=== PATIENT | male | born 1945 | race Caucasian/White ===

== ENCOUNTER 2020-08-01 10:25 | Inpatient (IN) | payer OTHER, MEDICARE, MEDICAID, SELFPAY ==
[2020-08-01] VITALS (14 sets, daily range): BP systolic 135–185; BP diastolic 80–113; PULSE 62–97; RESP 15–20; TEMP 36.3–37.4; O2SAT 95–99; BMI 36.5
--- NOTE | 2020-08-01 10:30 | CT_ITS ---
WS: [id number] CT HEAD TECHNIQUE: Noncontrast CT of the head obtained from the skullbase to the vertex. CLINICAL INFORMATION: neuro deficits COMPARISON: None. DLP: [address] scans at [facility] use at least one of these dose optimization techniques: automat ed exposure control; mA and/or kV adjustment per patient size (includes targeted exams where dose is matched to clinical indication); or iterative reconstruction. FINDINGS: No evidence of intracranial hemorrhage or mass effect. Ventricular system and basal cisterns are hernandez nt. Mild small vessel changes with mild parenchymal volume loss. No extra-axial fluid collections. No evidence of mass or mass effect. Normal bal-white differentiation. Mastoid air cells are well aerated. Mild mucosal thickening paranasal sinuses with secretions in the maxillary sinuses and ethmoid air cells. CT/CT head wo con* [id number] IMPRESSION: 1. No evidence of intracranial hemorrhage or mass effect. 2. Mild small vessel changes. Mild parenchymal volume loss. 3. Mild sinusitis. 4. No acute intracranial findings. Notified Giovanni Tejada MD at 08/01/2020 10:43 AM.
--- NOTE | 2020-08-01 10:30 | ECG_ITS ---
[facility] [place] [facility] Date: 2020-08-01 Pat Name: Ap Chavez Department: Room: Gender: Male Ammonia Operator: : 1945 Requested By: Giovanni Tejada Order Number: [id number] Bandar MD: Dax Dill M.D. Measurements Intervals Altha Rate: 77 P: 63 MI: 287 QRS: -77 QRSD: 124 T: 32 QT: 427 QTc: 483 Interpretive Statements SINUS RHYTHM WITH 2nd DEGREE TYPE I AV BLOCK RIGHT BUNDLE BRANCH BLOCK [120+ ms QRS DURATION, UPRIGHT V1, 40+ ms S IN I/aVL/V4/V5/V6] LEFT ANTERIOR FASCICULAR BLOCK [QRS AXIS <= -45, QR IN I, RS IN II] No previous ECG available for comparison Electronically Signed On 08-02-2020 19:17:04 FIBERGLASS FABRICATOR by Dax Dill M.D. [id number]
--- NOTE | 2020-08-01 10:30 | CT_ITS ---
WS: [id number] CTA HEAD AND NECK TECHNIQUE: Contrast enhanced CTA of the head and neck with coronal and sagittal reformatted images an d maximum intensity projection (MIP) images. NASCET criteria utilized. CLINICAL INFORMATION: neuro deficits COMPARISON: None. DLP: 2592.[address] scans at [facility] use at least one of these dose optimization techniques: automat ed exposure control; mA and/or kV adjustment per patient size (includes targeted exams where dose is matched to clinical indication); or iterative reconstruction. FINDINGS: RIGHT: Right common carotid artery is patent. Tortuous right cervical ICA. Mild carotid bulb stenosis with calcified atheromatous disease. Less than 50% right ICA stenosis. ICA is tortuous and patent to the skull base. Moderate calcified atheromatous disease cavernous carotid segment without flow-limit ing stenosis. Mild narrowing supraclinoid ICA which remains patent. Hypoplastic right A1. Normal vasc ularity to the right M1 segment. LEFT: Left common carotid artery is patent. Mild eccentric calcified atheromatous disease left caroti d bulb extending into the ICA with stenosis measuring approximately 30%. Left ICA is patent to the sk ull base. Mild cavernous carotid calcification. Normal vascularity to the left MCA territory. INTRACRANIAL CTA: Codominant and patent vertebral arteries bilaterally. Basilar artery is patent. Normal vascularity to the right MCA territory. Persistent left BLOCK GREASER. Hypoplastic right A1 segment. Patent anterior communicating artery. Normal M1 segments. Normal vascul arity to the CHANDRIKA and MCA territories bilaterally. No intracranial flow limiting stenosis. Distal vess els appear patent. Lung apices are well aerated. Normal neck soft tissues. Mild paranasal sinusitis. CT/CT angio headneck* [id number] IMPRESSION: 1. Less than 50% cervical ICA stenosis bilaterally. No flow-limiting stenosis. 2. No flow-limiting intracranial stenosis. 3. Moderate calcified atheromatous disease right cavernous carotid artery with out flow-limiting stenosis. 4. Hypoplastic right A1 segment. 5. Normal vascularity to the CHANDRIKA and MCA territories bilaterally. 6. Codominant and patent vertebral arteries. Basilar artery is patent. 7. Persistent left BLOCK GREASER.
[2020-08-01] MEDS: iodixanol 320 mg/mL 100mL Btl IV (10:37)
--- NOTE | 2020-08-01 10:59 | W.ED.NEUROSD ---
HPI - Neuro Symptoms/Deficit General: Chief Complaint: Neuro Symptoms/Deficit Stated Complaint: neuro deficits Time Seen by Provider: 08/01/20 10:28 Source: patient and EMS History of Present Illness: HPI Narrative: Patient presents with right-sided deficits consistent with a stroke. Has right arm and leg weakness. Has right facial droop. Has slurred speech. Last known well time was 2 AM when he got up to go to the bathroom. He states he was normal at that time. When he awoke this morning he had symptoms. Associated symptoms: Deny chest pain or headache(s) Review of Systems General: Reports: 10 or more systems reviewed and unremarkable except in HPI and below Const: Denies: fever(s) Eyes: Denies: change in vision ENMT: Denies: throat pain Card: Denies: chest pain Resp: Denies: dyspnea GI: Denies: abdominal pain : Denies: flank pain Musc: Denies: neck pain Neuro: Reports: weakness in extremities, Slurred speech present and difficulty communicating thoughts; Denies: headache(s), numbness in extremities or sensory changes NIH stroke score NIHSS: Level Of Consciousness - 1a: 0 Level Of Consciousness Questions - 1b: Both Correct Level Of Consciousness Commands - 1c: Both Correct Best Gaze - 2: Normal Visual [place] - 3: No Visual Loss Facial Palsy - 4: Partial Paralysis Motor Arm Right - 5: Effort Against [place] Motor Arm Left - 5: No Drift Motor Leg Right - 6: Drift Motor Leg Left - 6: No Drift Limb Ataxia - 7: Present In One Limb Sensory - 8: Normal Best Language - 9: Mild/Moderate Aphasia Dysarthia - 10: Mild/Moderate Dysarthia Extinction And Inattention - 11: 0 Score: Total Score: 8 Physical Exam Const: COMMON NORMALS: no acute distress, average body habitus, patient oriented x3, no limitations, healthy appearing, alert and well nourished HENMT: COMMON NORMALS: normocephalic, atraumatic, hearing grossly normal bilaterally, external ears normal, EAC's normal, TM's normal bilaterally, Normal external nose present, Normal nasal mucous membranes and turbinates present, moist oral mucous membranes, oropharynx normal, dentition normal and gingiva normal HEAD & SCALP: normocephalic and atraumatic NOSE: Normal external nose present and Normal nasal mucous membranes and turbinates present EXTERNAL EAR: Yes external ears normal EXTERNAL AUDITORY CANAL: EAC's normal TYMPANIC MEMBRANE: TM's normal bilaterally Eye: COMMON NORMALS: Equal, round and reactive pupils present, EOMs intact bilaterally, conjunctivae normal, no scleral icterus, no papilledema, normal visual aldridge by confrontation and fundi normal bilaterally CONJUNCTIVA: Yes conjunctivae normal PUPIL: Yes Equal, round and reactive pupils present DIRECT OPHTHALMOSCOPY: Yes no papilledema and Yes fundi normal bilaterally Neck/C-Spine: COMMON NORMALS: full ROM, no lymphadenopathy, supple, no meningeal signs, Thyroid normal and No carotid bruits THYROID: Thyroid normal Resp: COMMON NORMALS: normal respiratory effort, No retractions, No use of accessory muscles, clear to auscultation bilaterally and percussion normal AUSCULTATION: clear to auscultation bilaterally PERCUSSION: percussion normal Neuro: COMMON NORMALS: patient oriented x3 SENSORIUM/ORIENTATION: Yes alert MENINGEAL SIGNS: Yes no meningeal signs CRANIAL NERVES: No CN normal except as noted (Right facial droop with slurred speech) SPEECH: abnormal speech SENSORY EXAM: No sensory level loss detected MOTOR EXAM: No 5/5 motor strength present throughout (Patient with significant decreased strength of the right upper and lower ex) Course Vital Signs: Vital signs: Vital Signs Temperature 98.6 F 08/01/20 10:25 Pulse Rate 70 08/01/20 11:02 Respiratory Rate 18 08/01/20 11:02 Blood Pressure 167/113 08/01/20 11:02 Pulse Oximetry 96 08/01/20 11:02 MDM - Neuro Symptoms/Deficit MDM Narrative: Medical decision making narrative: Patient symptoms are slightly improving while here in the emergency department. His right arm is now able to be picked up off the bed which was not able to do initially. His head CT and CT of the head and neck were negative. Patient would not be a TPA candidate as his last known well time was approximately 8 to 10 hours ago. There is no large vessel occlusion. Patient clinically with CVA. Will admit patient to hospitalist. Lab Data: Labs: Lab Results 08/01/20 08/01/20 08/01/20 Range/Units 10:55 10:55 10:55 WBC 5.2 (4.0-10.0) 10^3/ uL RBC 4.66 (4.1-5.3) 10^6/u L Hgb 14.9 (11.7-16.6) g/dL Hct 45.5 (42.0-52.0) % MCV 97.6 H (80-94) fL MCH 32.0 (28.0-34.0) pg MCHC 32.7 (30.0-36.0) g/dL RDW 13.1 (12.1-15.1) % Plt Count 208 (130-400) 10^3/c mm MPV 9.1 (7.4-10.4) fL Neut % (Auto) 39.0 % Lymph % (Auto) 46.8 % [place] % (Auto) 10.5 % Eos % (Auto) 3.1 % Baso % (Auto) 0.4 % Neut # (Auto) 2.01 (1.8-7.7) 10^3/u L Lymph # (Auto) 2.4 (0.8-4.8) 10^3/u L [place] # (Auto) 0.5 (0.2-0.9) 10^3/u L Eos # (Auto) 0.2 (0.0-0.8) 10^3/u L Baso # (Auto) 0.0 (0.0-0.1) 10^3/u L Nucleated RBC % (a uto) 0 % Nucleated RBCs # 0.0 /100WBC PT 13.20 (12.1-14.9) SECO NDS INR 0.97 (0.8-1.2) APTT 24.4 (23.9-36.7) SECO NDS Sodium 140 (136-145) mmol/L Potassium 4.3 (3.5-5.1) mmol/L Chloride 105 (98-107) mmol/L Carbon Dioxide 27 (22-29) mmol/L Anion Gap 12.3 (5-19) BUN 12 (8-23) mg/dL Creatinine 1.2 (0.7-1.2) mg/dL GFR Calculation Not Reportable Glucose 108 (65-115) mg/dL Calculated Osmolal ity 290 (285-295) mOsm/k g Calcium 8.4 L (8.5-10.5) mg/dL Total Bilirubin 0.5 (0.15-1.2) mg/dL AST 16 (0-40) U/L ALT 14 (0-41) U/L Alkaline Phosphata se 61 (40-130) IU/L Total Protein 6.4 L (6.6-8.7) g/dL Albumin 3.9 (3.5-5.2) g/dL Globulin 2.5 (1.3-4.6) g/dL Discharge Plan Discharge Patient Disposition: Admitted As Inpatient Clinical Impression: Cerebrovascular accident Condition: Stable Coding Level of Care Code ED Instructor Psychiatric Aide for Mary Jane Fwd Exam Detailed
[2020-08-01 11:09] LABS: Basophils % 0.4 %; Eosinophils # 0.2 10^3/uL (0.0-0.8); Eosinophils % 3.1 %; Hematocrit 45.5 % (42.0-52.0); Hemoglobin 14.9 g/dL (11.7-16.6); Lymphocytes # 2.4 10^3/uL (0.8-4.8); Lymphocytes % 46.8 %; Mean Corpuscular HGB Conc 32.7 g/dL (30.0-36.0); Mean Corpuscular Volume 97.6 fL (80-94); Mean Platelet Volume 9.1 fL (7.4-10.4); Monocytes # 0.5 10^3/uL (0.2-0.9); Monocytes % 10.5 %; Neutrophils # 2.01 10^3/uL (1.8-7.7); Nucleated Red Blood Cells % 0 %; Platelet Count 208 10^3/cmm (130-400); Red Blood Count 4.66 10^6/uL (4.1-5.3); Red Cell Distribution Width 13.1 % (12.1-15.1); White Blood Count 5.2 10^3/uL (4.0-10.0)
[2020-08-01 11:22] LABS: INR 0.97 (0.8-1.2)
[2020-08-01 11:23] LABS: Partial Thromboplastin Time 24.4 SECONDS (23.9-36.7)
[2020-08-01 11:27] LABS: Alanine Aminotransferase 14 U/L (0-41); Albumin Level 3.9 g/dL (3.5-5.2); Alkaline Phosphatase 61 IU/L (40-130); Anion Gap 12.3 (5-19); Aspartate Amino Transferase 16 U/L (0-40); Blood Urea Nitrogen 12 mg/dL (8-23); Calcium 8.4 mg/dL (8.5-10.5); Carbon Dioxide 27 mmol/L (22-29); Chloride 105 mmol/L (98-107); Globulin 2.5 g/dL (1.3-4.6); Glucose 108 mg/dL (65-115); Osmolality Calculated 290 mOsm/kg (285-295); Potassium 4.3 mmol/L (3.5-5.1); Sodium 140 mmol/L (136-145); Total Bilirubin 0.5 mg/dL (0.15-1.2); Total Protein 6.4 g/dL (6.6-8.7)
[2020-08-01 12:35] LABS: Amphetamines Screen Urine Negative (Negative); Barbiturates Screen Urine Negative (Negative); Benzodiazepines Screen Urine Negative (Negative); Cocaine Screen Urine Negative (Negative); Opiate Screen Urine Positive (Negative); PCP Screen Urine Negative (Negative); THC Screen Urine Negative (Negative)
[2020-08-01 12:44] LABS: Add Urine Microscopic? YES; Bilirubin Urine Neg (Negative); Blood Urine 3+ (Negative); Glucose Urine UA Norm (Normal); Ketones Urine Negative (Negative); Leukocyte Esterase Urine Negative (Negative); Nitrate Urine Negative (Negative); Protein Urine Neg (Negative); Specific Gravity, Urine 1.025 (1.005-1.030); Urine Appearance Clear (CLEAR); Urine Color Yellow (Yellow); Urobilinogen Urine Norm (Negative); pH Urine 5 (5-7)
--- NOTE | 2020-08-01 12:44 | P.HP_ITS ---
Providers/Chief Complaint Admitting Physician: Alex Pena MD Chief Complaint: neuro deficits History of Present Illness Ap Chavez is a 75 year old male with a past medical history of atrial flutter status post ablation procedure, not on anticoagulation, has a history of right lower extremity DVTs, has finished Eliquis therapy, has a history of chronic back pain, with spinal stimulator, is on Suboxone therapy, who presents to [facility] due to concerns for a stroke. Patient's last known well was 10 PM the night before he met his went to bed. thinks that he did wake up in the middle of the night sometime around maybe 2 AM to use the bathroom. Currently patient's is a primary historian, patient has productive aphasia, he has slurring of his speech, his speech is difficult to make out, but he can nod to questions, no significant evidence of receptive aphasia. Patient's says that this morning at around 10 AM, she woke up, she use the bathroom, she found her on the floor, he was on his side, he had slurring of his words, but when she could make out his that he was telling her that he had weakness on the right side, he could not move his right arm, or move his right leg, so she called EMS. On arrival to the emergency room, patient's NIH stroke scale was 7, head CT was negative for intracranial bleed, patient was out of TPA window, CT of the head and neck did not show any lesion that was amenable to endovascular procedure, hospitalist team was called for admission. Currently patient's strength in the right upper and right lower extremities have improved compared to when he arrived in the emergency room. He is in normal sinus rhythm, blood pressure 185/105, saturating in the high 90s on room air, pulse is 62. Review of Systems General: Reports: ROS unobtainable due to medical condition Eyes: Denies: change in vision Card: Denies: chest pain Resp: Denies: dyspnea Neuro: Reports: weakness in extremities, lack of coordination and Slurred speech present; Denies: headache(s) or numbness in extremities PFSH Acute PFSH: Medical History (Updated 08/01/20 @ 12:49 by Alex Pena MD) History of atrial flutter History of deep venous thrombosis (DVT) of distal vein of right lower extremity Surgical History (Updated 08/01/20 @ 12:49 by Alex Pena MD) History of radiofrequency ablation procedure for cardiac arrhythmia Family History (Updated 08/01/20 @ 12:49 by Alex Pena MD) Other CAD (coronary artery disease) Diabetes Stroke Social History (Updated 08/01/20 @ 12:50 by Alex Pena MD) Smoking and tobacco status: never smoked Alcohol intake: current Alcohol intake frequency: 0-2 Drinks per Day Substance/Drug Use: never Vitals/I&O/Wt Last Vital Signs Temp 98.6 F 08/01/20 10:25 Pulse 62 08/01/20 12:02 Resp 15 08/01/20 12:02 BP 185/105 08/01/20 12:02 Pulse Ox 97 08/01/20 12:02 Weight last 48 hrs Weight 108.862 kg Physical Exam Const: COMMON NORMALS: no acute distress and patient oriented x3 GENERAL APPEARANCE: cooperative and comfortable HENMT: COMMON NORMALS: normocephalic HEAD & SCALP: normocephalic Eye: COMMON NORMALS: Equal, round and reactive pupils present and EOMs intact bilaterally GENERAL EYE: appearance normal, both eyes and all related structures PUPIL: Yes Equal, round and reactive pupils present Neck/C-Spine: COMMON NORMALS: full ROM, no lymphadenopathy, no JVD and Thyroid normal THYROID: Thyroid normal Lymph: LYMPHATIC: no lymphadenopathy noted Resp: COMMON NORMALS: normal respiratory effort, No retractions, No use of accessory muscles and clear to auscultation bilaterally AUSCULTATION: clear to auscultation bilaterally Cardio: COMMON NORMALS: no JVD, regular rate, regular rhythm, S1 normal heart sound present, S2 normal heart sound present, No gallops present (Cardio), No clicks present (Cardio) and No murmurs present (Cardio) RATE: regular rate RHYTHM: regular rhythm HEART SOUNDS: S1 normal heart sound present and S2 normal heart sound present GI: COMMON NORMALS: Normal to inspection, nondistended, normoactive bowel sounds present, Soft to palpation, non-tender and No hepatosplenomegaly present PALPATION: Yes Soft to palpation and Yes No hepatosplenomegaly present Extremity: COMMON NORMALS: normal to inspection, full ROM and no pedal edema Neuro: OTHER: Patient follows commands Has mild right facial droop, had nasolabial fold, right lower face Right upper extremity strength 2 out of 5 Right lower extremity strength 2 out of 5 Positive cerebellar signs, [id number] positive Has dysarthria, productive aphasia, slurring of his words No visual deficits Psych: COMMON NORMALS: mental status grossly normal and cooperative Urinary Catheter Management^: Curiel: Cath Placed During This Visit: yes Urinary Catheter Date of Insertion: 08/01/20 Urinary Catheter Time of Insertion: 12:03 Data : 08/01/20 10:55 08/01/20 10:55 A&P Assessment and plan (1) Cerebrovascular accident: Concerns for left-sided CVA, with right-sided deficits, right upper and right lower extremity weakness, right facial droop,'s productive aphasia, slurring of words -CT head: 1. No evidence of intracranial hemorrhage or mass effect. 2. Mild small vessel changes. Mild parenchymal volume loss. 3. Mild sinusitis. 4. No acute intracranial findings. -CTA head and neck: 1. Less than 50% cervical ICA stenosis bilaterally. No flow-limiting stenosis. 2. No flow-limiting intracranial stenosis. 3. Moderate calcified atheromatous disease right cavernous carotid artery without flow-limiting stenosis. 4. Hypoplastic right A1 segment. 5. Normal vascularity to the CHANDRIKA and MCA territories bilaterally. 6. Codominant and patent vertebral arteries. Basilar artery is patent. 7. Persistent left DIRECTOR OF LABOR RELATIONS -EKG normal sinus rhythm Plan: -Admit to general medical floors -Rectal aspirin -Swallow eval -Aspirin statin -Allow for permissive hypertension -Treat if systolic blood pressure greater than 220 or diastolic greater than 120 -Telemetry monitoring for A. fib events -Cardiac echocardiogram -PT OT -Continue IV fluids -TSH, mag -Neurochecks, aspiration precautions, NIH scores -Full code -Lovenox for DVT prophylaxis Status: Acute Attestations Medical Necessity Statement*: Patient requires hospitalization, inpatient, greater than 2 midnights, for cerebrovascular accidents, residual right-sided deficits, slurring of his words Coding Level of Care Code Acute Administrative Support Assistant for Mary Jane Sanders Diagnoses Cerebrovascular accident I63.9
[2020-08-01 13:02] LABS: Add Urine Culture? Yes; Bacteria Urine TRACE /hpf; RBC Urine 80-100 /hpf (0-2); Squamous Epithelial Cell Urine 0-4 /hpf (0-5)
--- NOTE | 2020-08-01 13:57 | USCV_ITS ---
Ap Chavez Age: 75 Gender: M : 1945 Exam Date: 08/01/2020 15:07 Ordering Phys: Alex Pena MD Technologist: Gretchen Alarcon [place] [facility] [place]ication: SOB BP: 160 / 87 HR: 71 Rhythm: Sinus Technical Quality: Suboptimal MEASUREMENTS (Male / Female) Normal Values 2D ECHO LV Diastolic Diameter PLAX 4.5 cm 4.2 - 5.9 / 3.9 - 5.3 cm LV Systolic Diameter PLAX 3.0 cm LV Chamber Size 4.0 cm IVS Diastolic Thickness 1.2 cm 0.6 - 1.0 / 0.6 - 0.9 cm IVS Systolic Thickness 1.9 cm LVPW Diastolic Thickness 1.6 cm 0.6 - 1.0 / 0.6 - 0.9 cm LVPW Systolic Thickness 2.3 cm RV Chamber Size 3.1 cm LVOT Diameter 2.0 cm LV Ejection Fraction 2D Teich 62.5 % LV Ejection Fraction MOD 2C 54.9 % LV Ejection Fraction 2C AL 55.5 % LA Diameter 2.6 cm LA Width 4.0 cm LA Height 4.4 cm Aorta at Sinotubular Diameter 2.9 cm M-MODE LV Diastolic Diameter MM 4.9 cm 4.2 - 5.9 / 3.9 - 5.3 cm LV Systolic Diameter MM 3.7 cm LV Ejection Fraction MM Teich 49.2 % IVS Diastolic Thickness MM 1.0 cm 0.6 - 1.0 / 0.6 - 0.9 cm IVS Systolic Thickness MM 1.3 cm LVPW Diastolic Thickness MM 0.9 cm 0.6 - 1.0 / 0.6 - 0.9 cm LVPW Systolic Thickness MM 1.1 cm Aortic Annulus Diameter 3.6 cm LA Ao Ratio MM 0.8 MV E Point Septal Separation 0.9 cm DOPPLER AV Peak Velocity 108.0 cm/s LVOT Peak Velocity 114.0 cm/s AV Area Cont Eq vti 3.3 cm squared AV Area Cont Eq pk 3.4 cm squared MV Area PHT 3.4 cm squared Mitral E to A Ratio 0.7 MV E' Velocity 30.5 cm/s Mitral E to MV E' Ratio 6.9 Mitral E to LV E' Lateral Ratio 7.8 Mitral E to LV E' Septal Ratio 6.2 TR Peak Velocity 95.3 cm/s TR Peak Gradient 3.6 mmHg TV Peak E Velocity 52.0 cm/s PV Peak Velocity 103.0 cm/s RV Acceleration Time 0.1 s RV Ejection Time 0.3 s RV AcT/ET 0.4 FINDINGS Left Ventricle Possibly normal LV size ejection fraction. No gross wall motion normalities were noted.Grade I/IV diastolic dysfunction (abnormal relaxation filling pattern), normal to mildly elevated filling pressures. Right Ventricle Possibly of normal size ejection fraction Right Atrium Could not be visualized well Left Atrium Possibly of normal size. Mitral Valve Thickened mitral valve. Mild mitral annular calcification. Aortic Valve No gross abnormalities noted Tricuspid Valve Not visualized well Pulmonic Valve Not visualized well Pericardium Normal pericardium without effusion. Aorta Normal ascending aorta dimension. CONCLUSIONS Possibly normal LV size ejection fraction. No gross wall motion normalities were noted. Grade I/IV diastolic dysfunction (abnormal relaxation filling pattern), normal to mildly elevated filling pressures. Thickened mitral valve. Mild mitral annular calcification. There is no pericardial effusion. Technically difficult study because of the poor ultrasonic window. Dr Dax Dill MD [facility] (Electronically Signed) Final Date: 02 August 2020 11:41 S
--- NOTE | 2020-08-01 13:57 | USCV_ITS ---
Ap Chavez Age: 75 Gender: M : 1945 Exam Date: 08/01/2020 15:18 Ordering Phys: Alex Pena MD Technologist: Gretchen Alarcon [place] [facility] [place]: DVT HISTORY: DVT. PROCEDURES: Venous duplex imaging was performed in bilateral lower extremities. The following venous structures were evaluated: common femoral vein, profunda vein, proximal portion of the greater saphenous vein, superficial femoral vein, and the popliteal vein. In addition, the posterior tibial and peroneal trunk were evaluated. Serial compression, augmentation maneuvers, and spectral Doppler flow evaluation were performed. FINDINGS: Tech difficult exam unable to see vessels clearly. DVT was noted in the right CFV extending into proximal FV. The right common femoral vein in the proximal segment of the superficial femoral vein were found to be partially compressible. Echodensities were noted in the lumen of these veins thick venous varela. CONCLUSIONS 1. Features suggestive of deep vein thrombosis involving the right common femoral and proximal segment of the superficial femoral vein. Features may suggest old thrombosis with recanalization. But because of the technical difficulties, the rest of the venous segments could not be visualized well. 2. No DVT was noted on the left side 3. Technically difficult study. Dr Dax Dill MD [facility] (Electronically Signed) Final Date: 02 August 2020 11:21 S
--- NOTE | 2020-08-01 15:35 | US_ITS ---
WS: [id number] ULTRASOUND RENAL TECHNIQUE: Ultrasound examination of both kidneys. CLINICAL INFORMATION: hematuria COMPARISON: None. FINDINGS: Technically difficult examination due to body habitus. RIGHT: Right kidney is normal in size and appearance. Echogenicity: Normal. Cortical thickness: 1.4 cm; Normal. Hydronephrosis: None. Perinephric fluid: None. Right kidney measures: 10.7 cm x 3.8 cm x 5.3 cm. LEFT: Left kidney is normal in size and appearance. Echogenicity: Normal. Cortical thickness: 1.3 cm; Normal. Hydronephrosis: None. Perinephric fluid: None. Left kidney measures: 10.7 cm x 4.1 cm x 5.6 cm. Normal visualized aorta. Curiel catheter. US/US renal BI* [id number] IMPRESSION: Technically difficult examination. 1. No hydronephrosis in either kidney. 2. Curiel catheter. 3. Nonobstructing right renal calculus measuring 3 mm
[2020-08-01] MEDS: clopidogrel 75 mg Tablet PO (17:18)
[2020-08-01] MEDS: aspirin 81 mg EC Tablet PO (17:18)
[2020-08-01] MEDS: enoxaparin 40 mg/0.4 mL Syringe SUBCUT (17:19)
[2020-08-01] MEDS: sodium chloride 0.9% 1,000 ML 100 ML IV (17:20)
[2020-08-01] MEDS: ondansetron 2 mg/ML SDV 2 mL 4 MG IVP (22:20)
[2020-08-01] MEDS: famotidine 20 mg/2 mL INJ IVP (22:21)
[2020-08-02] VITALS (11 sets, daily range): BP systolic 128–169; BP diastolic 71–98; PULSE 67–90; RESP 16–20; TEMP 36.7–37.2; O2SAT 93–94
[2020-08-02 04:50] LABS: Basophils % 0.3 %; Eosinophils % 0.5 %; Hemoglobin 14.6 g/dL (11.7-16.6); Lymphocytes # 1.4 10^3/uL (0.8-4.8); Lymphocytes % 18.4 %; Mean Corpuscular HGB Conc 33.2 g/dL (30.0-36.0); Mean Corpuscular Hemoglobin 32.4 pg (28.0-34.0); Mean Corpuscular Volume 97.8 fL (80-94); Mean Platelet Volume 9.3 fL (7.4-10.4); Monocytes # 0.7 10^3/uL (0.2-0.9); Monocytes % 9.2 %; Neutrophils % 71.2 %; Nucleated Red Blood Cells % 0 %; Platelet Count 213 10^3/cmm (130-400); White Blood Count 7.6 10^3/uL (4.0-10.0)
[2020-08-02 05:27] LABS: Alanine Aminotransferase 12 U/L (0-41); Alkaline Phosphatase 65 IU/L (40-130); Anion Gap 13.2 (5-19); Aspartate Amino Transferase 13 U/L (0-40); Blood Urea Nitrogen 10 mg/dL (8-23); Carbon Dioxide 26 mmol/L (22-29); Chloride 104 mmol/L (98-107); Cholesterol 209 mg/dL (0-200); Globulin 2.5 g/dL (1.3-4.6); Glucose 113 mg/dL (65-115); HDL Cholesterol 41 mg/dL (60-100); Magnesium 1.9 mg/dL (1.7-2.3); NT Pro B Type Natriuretic Pept 302 pg/mL (0-125); Osmolality Calculated 288 mOsm/kg (285-295); Phosphorus 2.3 mg/dL (2.5-4.5); Potassium 4.2 mmol/L (3.5-5.1); Sodium 139 mmol/L (136-145); Thyroid Stimulating Hormone 0.44 uIU/mL (0.27-4.20); Total Bilirubin 0.6 mg/dL (0.15-1.2); Total Protein 6.5 g/dL (6.6-8.7); Triglycerides 427 mg/dL (0-150)
[2020-08-02] MEDS: sodium chloride 0.9% 1,000 ML 100 ML IV ×2 (05:37→20:22)
[2020-08-02 06:17] LABS: Estmated Average Glucose 111; Hemoglobin A1C 5.5 % (4.0-6.0)
[2020-08-02 06:32] LABS: LDL Cholesterol Direct 121 mg/dL (0-100)
--- NOTE | 2020-08-02 10:49 | CTR_ITS ---
PROCEDURE INFORMATION: Exam: CT Head Without Contrast Exam date and time: 08/02/2020 11:05 AM Age: 75 years old Clinical indication: Altered mental status/memory loss; Confusion or disorientation; Additional info: [place] course of CVA TECHNIQUE: Imaging protocol: Computed tomography of the head without contrast. Radiation optimization: All CT scans at this facility use at least one of these dose optimization techniques: automated exposure control; mA and/or kV adjustment per patient size (includes targeted exams where dose is matched to clinical indication); or iterative reconstruction. COMPARISON: CT head wo con* [id number] 08/01/2020 10:39 AM RADIATION DOSE METRICS: Total DLP (mGy-cm): 1816.9 FINDINGS: Brain: There is a 3 cm region of low density involving the anterior portion of the left basal ganglia and left internal capsule consistent with a recent nonhemorrhagic infarct. This has occurred since the previous CT scan from 08/01/2020. There is generalized prominence of the ventricles and sulci due to chronic atrophy. There is no mass effect or midline shift. Cerebral ventricles: There is mild prominence of the ventricles due to chronic atrophy.. Bones/joints: Unremarkable. No acute fracture. Paranasal sinuses: There is mucosal thickening in the paranasal sinuses with fluid in the maxillary sinuses. Mastoid air cells: Visualized mastoid air cells are well aerated. Soft tissues: Unremarkable. CT/CT head wo con* [id number] IMPRESSION: 1. Nonhemorrhagic acute infarct involving the anterior portion of the left basal ganglia and internal capsule. 2. Chronic atrophy. 3. Paranasal sinusitis. Radiation Dose CTDIVOL = (mGy): DLP = 1816.9 (mGy-cm)
[2020-08-02 10:56] LABS: Glucose Point of Care 124 mg/dL (70-110)
[2020-08-02] MEDS: aspirin 81 mg EC Tablet PO (11:03)
--- NOTE | 2020-08-02 11:03 | PC.CHAP ---
Pastoral Care Encounter/Spiritual Assessment Type of Contact [] Declined brick and tile making machine operator visit [] Patient/Family/Request visit [] Outpatient visit [] Follow-up visit [] Physician referral [] Code/Alert [XX] Routine visit [] Staff referral [] Actively dying [] Patient sleeping [] Family support [] [] Out of room [] Palliative care [] [] Receiving care in room [] Pre-surgical visit [] Trauma [] Long length of stay [] ICU visit [] Other: Relational/Emotional Strength [] Patient feels connected with others/family/visitors/staff [] Distress [] Loneliness/isolation [] Abandonment Spirituality of Patient [] Person of Nohemi [] Attends Caodaism of their Nohemi [] Believes in Prayer [] Reads Bible or Alevism materials [] There are Spiritual issues to be addressed Graphic Manager Interventions [] Prayer [] Active listening [XX] Non-anxious presence [] Spiritual/emotional support [] Crisis/trauma care [] Spiritual counseling [] Bereavement support [] Provided bereavement packet [] Provided Bible/devotional materials [] Provided toy/stuffed animal, coloring book to patient or family member [] Provided Communion [] Anointing/[place] [] Salvation [] Completed spiritual assessment [] Other: Impact on Illness or Injury [] Angry [] Fearful [] Anxious [] Often cries [] Exhaustion [] Unable to work [] Unable to attend mandaen [] Unable to walk/stand [] Unable to read [] Unable to drive [] Unable to eat/drink [] Unable to sleep [] Unable to be with family [] Patient intubated [] Other: Summary: Pt did not feel well enough for a visit but stated that he appreciated me stopping by. Will request brick and tile making machine operator follow-up. Time spent with patient: 1 min
[2020-08-02] MEDS: famotidine 20 mg/2 mL INJ IVP ×2 (11:04→20:33)
[2020-08-02] MEDS: clopidogrel 75 mg Tablet PO (11:04)
[2020-08-02] MEDS: buprenorphine-naloxone 4-1 mg Film 2 EACH SUBLINGUAL (11:14)
--- NOTE | 2020-08-02 13:17 | P.PN_ITS ---
Subjective Subjective: Interval history: Overnight patient's NIH stroke scales were as high as 17, it seems like he has had a stuttering course in terms of his stroke, this morning, I do not see any evidence of receptive aphasia capably understands what I am saying, does have slurring of his speech, was seen by speech therapy his diet was changed to dysphagia level 2, his right upper extremity weakness is more pronounced this morning compared to yesterday, his right lower extremity weakness is a bit better, compared to yesterday, does have right facial droop, he follows all commands, afebrile overnight, no seizure episodes, blood pressures 156/90, saturating high 90s on room air Vitals/I&O/Wt Last Vital Signs Temp 98.8 F 08/02/20 12:00 Pulse 83 08/02/20 12:00 Resp 18 08/02/20 12:00 BP 156/90 08/02/20 12:00 Pulse Ox 94 08/02/20 12:00 08/01/20 08/02/20 08/02/20 22:59 06:59 14:59 Intake Total 240 / 240 1100 / 1340 220 / 220 Output Total 1200 / 1200 450 / 1650 Balance -960 / -960 650 / -310 220 / 220 Weight last 48 hrs Weight 108.862 kg Physical Exam Const: COMMON NORMALS: no acute distress and patient oriented x3 GENERAL APPEARANCE: cooperative and comfortable HENMT: COMMON NORMALS: normocephalic HEAD & SCALP: normocephalic Eye: COMMON NORMALS: Equal, round and reactive pupils present and EOMs intact bilaterally GENERAL EYE: appearance normal, both eyes and all related structures PUPIL: Yes Equal, round and reactive pupils present Neck/C-Spine: COMMON NORMALS: full ROM, no lymphadenopathy, no JVD and Thyroid normal THYROID: Thyroid normal Lymph: LYMPHATIC: no lymphadenopathy noted Resp: COMMON NORMALS: normal respiratory effort, No retractions, No use of accessory muscles and clear to auscultation bilaterally AUSCULTATION: clear to auscultation bilaterally Cardio: COMMON NORMALS: no JVD, regular rate, regular rhythm, S1 normal heart sound present, S2 normal heart sound present, No gallops present (Cardio), No clicks present (Cardio) and No murmurs present (Cardio) RATE: regular rate RHYTHM: regular rhythm HEART SOUNDS: S1 normal heart sound present and S2 normal heart sound present GI: COMMON NORMALS: Normal to inspection, nondistended, normoactive bowel sounds present, Soft to palpation, non-tender and No hepatosplenomegaly present PALPATION: Yes Soft to palpation and Yes No hepatosplenomegaly present Extremity: COMMON NORMALS: normal to inspection, full ROM and no pedal edema Neuro: COMMON NORMALS: patient oriented x3 OTHER: Patient follows commands Has mild right facial droop, had nasolabial fold, right lower face Right upper extremity strength 1 out of 5 Right shoulder strength 2 out of 5 compared to 5 out of 5 Right lower extremity strength 3 out of 5 Positive cerebellar signs, [id number] positive Has dysarthria, productive aphasia, slurring of his words slightly worse compared to yesterday No visual deficits Psych: COMMON NORMALS: mental status grossly normal and cooperative Urinary Catheter Management^: Curiel: Cath Placed During This Visit: yes Reason for Continuing Indwelling Catheter: Required Immobilization for Trauma or Surgery or Anesthesia Urinary Catheter Date of Insertion: 08/01/20 Urinary Catheter Time of Insertion: 12:03 Data : 08/02/20 04:30 08/02/20 04:30 A&P Assessment and plan (1) Cerebrovascular accident: left-sided CVA, with right-sided deficits, right upper and right lower extremity weakness, right facial droop,'s productive aphasia, slurring of words -CT head: 1. No evidence of intracranial hemorrhage or mass effect. 2. Mild small vessel changes. Mild parenchymal volume loss. 3. Mild sinusitis. 4. No acute intracranial findings. -CTA head and neck: 1. Less than 50% cervical ICA stenosis bilaterally. No flow-limiting stenosis. 2. No flow-limiting intracranial stenosis. 3. Moderate calcified atheromatous disease right cavernous carotid artery without flow-limiting stenosis. 4. Hypoplastic right A1 segment. 5. Normal vascularity to the CH[place]RIKA and MCA territories bilaterally. 6. Codominant and patent vertebral arteries. Basilar artery is patent. 7. 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 fib events -PT OT -Continue IV fluids -TSH, mag within normal limits -Cannot do an MRI as he patient has a spinal stimulator -Neurochecks, aspiration precautions, NIH scores -Monitor for signs for cerebral edema -Full code -Lovenox for DVT prophylaxis Status: Acute (2) Right leg DVT: -Patient has a history of right lower extremity DVT, on anticoagulation, now off of it, timeframe unknown, he is not exactly sure how long he was on anticoagulation for -Right lower extremity ultrasound showed: Features suggestive of deep vein thrombosis involving the right common femoral and proximal segment of the superficial femoral vein. Features may suggest old thrombosis with recanalization. But because of the technical difficulties, the rest of the venous segments could not be visualized well. -Was a technically difficult study -For now we will treat like it is an acute DVT, place patient on therapeutic Lovenox Status: Acute Attestations Medical Necessity Statement*: Patient requires hospitalization, for acute left-sided CVA, with right lower extremity DVT Coding Level of Care Code Acute Java Front End Web Developer for Mary Jane Sanders Diagnoses Cerebrovascular accident I63.9 Right leg DVT I82.401
[2020-08-02] MEDS: enoxaparin 120 mg/0.8 mL Syringe 110 MG SUBCUT (14:38)
--- NOTE | 2020-08-02 18:38 | PC.NURSE ---
AT APPROX 0930 PTS BED ALARM WAS GOING OFF. NURSE RUSHED TO BEDSIDE, PT HAD ELEVATED BED TO HIGHEST LEVEL ON HIS OWN. HAD HIS L FOOT HANGING OFF BAD. NURSE LOWERED BED AND LOCKED IT. PT WAS EDUCATED ABOUT SAFETY. AT APPROX. 0415 PTS YELLS FOR HELP, PT HAD DECIDED HE WANTED OUT OF THE CHAIR, GOT VERY ANGRY WITH HIS . HE WAS REDIRECTED. NURSE WAS LEAVING ROOM, PT TOOK TELEMETRY LEADS OFF AND HE STARTED PUSHING BUTTONS ON IV PUMP. PUMP WAS LOCKED OUT AND DR. SIMMS CALLED FOR 1:1 SITTER ORDERS. ORDERS RECEIVED FOR 1:1 SITTER. SITTER CURRENTLY AT BEDSIDE
[2020-08-02] MEDS: atorvastatin 40 mg Tablet 80 MG PO (21:19)
[2020-08-03] VITALS (8 sets, daily range): BP systolic 119–161; BP diastolic 69–91; PULSE 55–80; RESP 14–20; TEMP 36.7–38.1; O2SAT 92–94
[2020-08-03] MEDS: enoxaparin 120 mg/0.8 mL Syringe 110 MG SUBCUT ×3 (00:50→22:33)
[2020-08-03] MEDS: sodium chloride 0.9% 1,000 ML 100 ML IV (05:45)
[2020-08-03 05:58] LABS: Basophils % 0.5 %; Eosinophils # 0.2 10^3/uL (0.0-0.8); Eosinophils % 2.7 %; Hematocrit 42.3 % (42.0-52.0); Hemoglobin 13.5 g/dL (11.7-16.6); Lymphocytes # 2.1 10^3/uL (0.8-4.8); Lymphocytes % 36.5 %; Mean Corpuscular HGB Conc 31.9 g/dL (30.0-36.0); Mean Corpuscular Hemoglobin 32.5 pg (28.0-34.0); Mean Corpuscular Volume 101.7 fL (80-94); Mean Platelet Volume 9.4 fL (7.4-10.4); Monocytes # 0.7 10^3/uL (0.2-0.9); Monocytes % 12.3 %; Neutrophils % 47.7 %; Nucleated Red Blood Cells % 0 %; Platelet Count 203 10^3/cmm (130-400); Red Blood Count 4.16 10^6/uL (4.1-5.3); Red Cell Distribution Width 13.6 % (12.1-15.1); White Blood Count 5.9 10^3/uL (4.0-10.0)
[2020-08-03 06:23] LABS: Alanine Aminotransferase 10 U/L (0-41); Albumin Level 3.7 g/dL (3.5-5.2); Alkaline Phosphatase 54 IU/L (40-130); Anion Gap 9.8 (5-19); Aspartate Amino Transferase 14 U/L (0-40); Blood Urea Nitrogen 11 mg/dL (8-23); Calcium 8.6 mg/dL (8.5-10.5); Carbon Dioxide 28 mmol/L (22-29); Chloride 105 mmol/L (98-107); Globulin 2.2 g/dL (1.3-4.6); Glucose 94 mg/dL (65-115); Osmolality Calculated 287 mOsm/kg (285-295); Phosphorus 2.8 mg/dL (2.5-4.5); Potassium 3.8 mmol/L (3.5-5.1); Sodium 139 mmol/L (136-145); Total Bilirubin 0.6 mg/dL (0.15-1.2); Total Protein 5.9 g/dL (6.6-8.7)
[2020-08-03] MEDS: aspirin 81 mg EC Tablet PO (08:09)
[2020-08-03] MEDS: clopidogrel 75 mg Tablet PO (08:10)
[2020-08-03] MEDS: famotidine 20 mg/2 mL INJ IVP ×2 (08:10→21:16)
[2020-08-03] MEDS: buprenorphine-naloxone 4-1 mg Film 2 EACH SUBLINGUAL (08:10)
--- NOTE | 2020-08-03 09:29 | PC.NURSE ---
Rcvd verbal order from Dr Pena to stop maintenance fluids.
[2020-08-03] MEDS: lisinopril 20 mg Tablet PO ×2 (11:04→17:14)
--- NOTE | 2020-08-03 11:42 | PM.PN ---
Subjective Subjective: Interval history: This morning patient was examined, he follows all commands, says he is doing okay, his slurring of his speech has persisted, his right upper extremity weakness has worsened, right lower extremity weakness has worsened, he is working with physical therapy, denies any headaches, no blurry vision, no nausea, no vomiting, no episodes of seizure, remains on room air, no cough Vitals/I&O/Wt Last Vital Signs Temp 98.0 F 08/03/20 11:08 Pulse 68 08/03/20 11:08 Resp 20 H 08/03/20 11:08 BP 161/89 08/03/20 11:08 Pulse Ox 94 08/03/20 11:08 08/02/20 08/03/20 08/03/20 22:59 06:59 14:59 Intake Total 1200 / 1640 1038.333 / 2678.333 400 / 400 Output Total 450 / 450 240 / 690 Balance 750 / 1190 798.333 / 1988.333 400 / 400 Physical Exam Const: COMMON NORMALS: no acute distress and patient oriented x3 GENERAL APPEARANCE: cooperative and comfortable HENMT: COMMON NORMALS: normocephalic HEAD & SCALP: normocephalic Neck/C-Spine: COMMON NORMALS: no JVD Resp: COMMON NORMALS: normal respiratory effort, No retractions, No use of accessory muscles and clear to auscultation bilaterally AUSCULTATION: clear to auscultation bilaterally Cardio: COMMON NORMALS: no JVD, regular rate, regular rhythm, S1 normal heart sound present and S2 normal heart sound present RATE: regular rate RHYTHM: regular rhythm HEART SOUNDS: S1 normal heart sound present and S2 normal heart sound present GI: COMMON NORMALS: Normal to inspection, nondistended, normoactive bowel sounds present, Soft to palpation, non-tender, No hepatosplenomegaly present, no masses and no bruits PALPATION: Yes Soft to palpation and Yes No hepatosplenomegaly present Extremity: COMMON NORMALS: capillary refill normal, no clubbing, cyanosis or edema, no calf tenderness and no pedal edema Neuro: COMMON NORMALS: patient oriented x3 OTHER: Patient follows commands Very minimal right facial droop, almost nonexistent Right upper extremity strength 1 out of 5 Right shoulder strength 2 out of 5 compared to 5 out of 5 Right lower extremity strength 3 out of 5 Positive cerebellar signs, [id number] positive Has dysarthria, productive aphasia, slurring of his words slightly worse compared to yesterday No visual deficits Psych: COMMON NORMALS: mental status grossly normal Urinary Catheter Management^: Curiel: Cath Placed During This Visit: yes Reason for Continuing Indwelling Catheter: Other Urinary Catheter Date of Insertion: 08/01/20 Urinary Catheter Time of Insertion: 12:03 Data : 08/03/20 05:10 08/03/20 05:10 Micro: Microbiology 08/01/20 11:55 Urine Culture - Final Urine,Clean Catch A&P Assessment and plan (1) Cerebrovascular accident: left-sided CVA, with right-sided deficits, right upper and right lower extremity weakness, right facial droop,'s productive aphasia, slurring of words -CT head: 1. No evidence of intracranial hemorrhage or mass effect. 2. Mild small vessel changes. Mild parenchymal volume loss. 3. Mild sinusitis. 4. No acute intracranial findings. -CTA head and neck: 1. Less than 50% cervical ICA stenosis bilaterally. No flow-limiting stenosis. 2. No flow-limiting intracranial stenosis. 3. Moderate calcified atheromatous disease right cavernous carotid artery without flow-limiting stenosis. 4. Hypoplastic right A1 segment. 5. Normal vascularity to the CHANDRIKA and MCA territories bilaterally. 6. Codominant and patent vertebral arteries. Basilar artery is patent. 7. Persistent left COOKEE -EKG normal sinus rhythm -Echocardiogram shows possibly normal left ventricular ejection fraction, no gross wall motion abnormalities, grade 1 or 4 diastolic dysfunction, -Repeat CT of the head this morning shows: Nonhemorrhagic acute infarct involving the anterior portion of the left basal ganglia and internal capsule -Patient has a stuttering course Plan: -Admit to general medical floors -Aspirin 81 mg -Plavix -Statin -Treat hypertension, start lisinopril 20 twice daily -Telemetry monitoring for A. fib events -PT OT -TSH, mag within normal limits -Cannot do an MRI as he patient has a spinal stimulator -Neurochecks, aspiration precautions, NIH scores -Monitor for signs for cerebral edema -Full code -Lovenox for DVT prophylaxis -Patient will likely require discharge to [place] [facility] Status: Acute (2) Right leg DVT: -Patient has a history of right lower extremity DVT, on anticoagulation, now off of it, timeframe unknown, he is not exactly sure how long he was on anticoagulation for -Right lower extremity ultrasound showed: Features suggestive of deep vein thrombosis involving the right common femoral and proximal segment of the superficial femoral vein. Features may suggest old thrombosis with recanalization. But because of the technical difficulties, the rest of the venous segments could not be visualized well. -Was a technically difficult study -For now we will treat like it is an acute DVT, place patient on therapeutic Lovenox Status: Acute Attestations Medical Necessity Statement*: Patient requires hospitalization for acute CVA, right leg DVT, proceeding to [place] [facility] for rehab Coding Level of Care Code Acute Head Counselor for [facility] Fwd Diagnoses Cerebrovascular accident I63.9 Right leg DVT I82.401
[2020-08-03] MEDS: amlodipine 10 mg Tablet PO (17:14)
--- NOTE | 2020-08-03 17:22 | PC.NURSE ---
patient refuses telemetry. Dr Pena notified.
--- NOTE | 2020-08-03 17:23 | PC.NURSE ---
rcvd order from Dr Pena to renew 1:1 order
[2020-08-03] MEDS: atorvastatin 40 mg Tablet 80 MG PO (22:31)
[2020-08-04] VITALS (7 sets, daily range): BP systolic 112–147; BP diastolic 63–79; PULSE 68–88; RESP 12–18; TEMP 36.7–37.8; O2SAT 91–98
[2020-08-04 05:13] LABS: Basophils % 0.5 %; Eosinophils # 0.1 10^3/uL (0.0-0.8); Eosinophils % 0.6 %; Hemoglobin 13.4 g/dL (11.7-16.6); Lymphocytes # 1.5 10^3/uL (0.8-4.8); Lymphocytes % 18.5 %; Mean Corpuscular HGB Conc 31.9 g/dL (30.0-36.0); Mean Corpuscular Hemoglobin 31.9 pg (28.0-34.0); Mean Platelet Volume 9.4 fL (7.4-10.4); Monocytes # 1.3 10^3/uL (0.2-0.9); Monocytes % 16.4 %; Neutrophils # 5.17 10^3/uL (1.8-7.7); Neutrophils % 63.5 %; Nucleated Red Blood Cells % 0 %; Platelet Count 204 10^3/cmm (130-400); Red Cell Distribution Width 13.3 % (12.1-15.1); White Blood Count 8.2 10^3/uL (4.0-10.0)
[2020-08-04 05:54] LABS: Alanine Aminotransferase 10 U/L (0-41); Albumin Level 3.7 g/dL (3.5-5.2); Alkaline Phosphatase 59 IU/L (40-130); Aspartate Amino Transferase 13 U/L (0-40); Blood Urea Nitrogen 9 mg/dL (8-23); Calcium 8.9 mg/dL (8.5-10.5); Carbon Dioxide 29 mmol/L (22-29); Chloride 106 mmol/L (98-107); Creatinine Clr Calc Pharmacy 87.4565; Globulin 2.6 g/dL (1.3-4.6); Glucose 110 mg/dL (65-115); Magnesium 1.9 mg/dL (1.7-2.3); Osmolality Calculated 293 mOsm/kg (285-295); Phosphorus 2.6 mg/dL (2.5-4.5); Sodium 142 mmol/L (136-145); Total Bilirubin 1.2 mg/dL (0.15-1.2); Total Protein 6.3 g/dL (6.6-8.7)
--- NOTE | 2020-08-04 07:41 | PC.SOCIAL ---
IMM Update Pg. 2 of IMM updated and reviewed with patient, who verbalized understanding. Copy provided.
[2020-08-04] MEDS: amlodipine 10 mg Tablet PO (09:17)
[2020-08-04] MEDS: clopidogrel 75 mg Tablet PO (09:17)
[2020-08-04] MEDS: aspirin 81 mg EC Tablet PO (09:17)
[2020-08-04] MEDS: lisinopril 20 mg Tablet PO ×2 (09:17→18:10)
[2020-08-04] MEDS: acetaminophen 325 mg Tablet 650 MG PO ×2 (09:17→22:36)
[2020-08-04] MEDS: famotidine 20 mg/2 mL INJ IVP (09:17)
[2020-08-04] MEDS: buprenorphine-naloxone 4-1 mg Film 2 EACH SUBLINGUAL (09:18)
--- NOTE | 2020-08-04 09:53 | PC.CHAP ---
Pastoral Care Encounter/Spiritual Assessment Type of Contact [] Declined rn cvicu visit [] Patient/Family/Request visit [] Outpatient visit [] Follow-up visit [] Physician referral [] Code/Alert [x] Routine visit [] Staff referral [] Actively dying [] Patient sleeping [] Family support [] [] Out of room [] Palliative care [] [] Receiving care in room [] Pre-surgical visit [] Trauma [] Long length of stay [] ICU visit [] Other: Relational/Emotional Strength [] Patient feels connected with others/family/visitors/staff [] Distress [] Loneliness/isolation [] Abandonment Spirituality of Patient [x] Person of Nohemi [] Attends Hinduism of their Nohemi [] Believes in Prayer [] Reads Bible or Holiness materials [] There are Spiritual issues to be addressed Mobile Security Specialist Interventions x[] Prayer [] Active listening [] Non-anxious presence [] Spiritual/emotional support [] Crisis/trauma care [] Spiritual counseling [] Bereavement support [] Provided bereavement packet [] Provided Bible/devotional materials [] Provided toy/stuffed animal, coloring book to patient or family member [] Provided Communion [] Anointing/Elizabeth [] Salvation [x] Completed spiritual assessment [] Other: Impact on Illness or Injury [] Angry [] Fearful [] Anxious [] Often cries [] Exhaustion [] Unable to work [] Unable to attend anglican [] Unable to walk/stand [] Unable to read [] Unable to drive [] Unable to eat/drink [] Unable to sleep [] Unable to be with family [] Patient intubated [] Other: Summary patient not feeling well sleepy Time spent with patient 10 min
--- NOTE | 2020-08-04 10:33 | PC.NURSE ---
financial underwriter called with update on patient's condition. financial underwriter explained Dr ordered MRI and financial underwriter needed to do check list with her for MRI. patient's said patient has nerve stimulator in back. Patient's also said she is planning to visit patient this afternoon and would like to talk to and ENEDINA.
[2020-08-04] MEDS: enoxaparin 120 mg/0.8 mL Syringe 110 MG SUBCUT ×2 (12:06→22:37)
--- NOTE | 2020-08-04 12:07 | XR_ITS ---
WS: [id number] PORTABLE CHEST HISTORY: elevated temp COMPARISON: None available. Slight elevation of the RIGHT hemidiaphragm. No pneumonia. No pleural effusion or pneumothorax. Cardiac size: Normal. Mediastinum/Aorta: Mild atherosclerosis aorta. Prior LEFT rotator cuff repair. Electrodes noted over the mid thoracic spine. XR/XR chest 1V portable [id number] IMPRESSION: No acute cardiopulmonary disease.
--- NOTE | 2020-08-04 12:07 | PM.PN ---
Subjective Subjective: Interval history: Ap reports he is doing okay, although he is frustrated with not being able to move as well as he would like. Temperature elevation was noted last night. Medications: Reviewed: Yes Vitals/I&O/Wt Last Vital Signs Temp 98.5 F 08/04/20 11:27 Pulse 75 08/04/20 11:27 Resp 16 08/04/20 11:27 BP 112/74 08/04/20 11:27 Pulse Ox 94 08/04/20 11:27 08/03/20 08/04/20 08/04/20 22:59 06:59 14:59 Intake Total 950 / 1350 0 / 0 Output Total 500 / 500 500 / 1000 Balance 450 / 850 -500 / 350 0 / 0 Physical Exam Narrative: EXAM NARRATIVE: Erwin is a white male, with slurred speech but no apparent distress Neck is supple no lymphadenopathy thyromegaly Cardiovascular regular rate and rhythm without murmur Lungs clear but with diminished breath sounds bilaterally Abdomen is soft nontender with positive bowel sounds Extremities no cyanosis clubbing or edema Neurologic: Right hemiparesis noted, right facial droop. Urinary Catheter Management^: Curiel: Cath Placed During This Visit: yes Reason for Continuing Indwelling Catheter: Other Urinary Catheter Date of Insertion: 08/01/20 Urinary Catheter Time of Insertion: 12:03 Data : 08/04/20 04:46 08/04/20 04:46 Micro: Microbiology 08/01/20 11:55 Urine Culture - Final Urine,Clean Catch A&P Assessment and plan (1) Cerebrovascular accident: Anterior portion left basal ganglia and internal capsule Continue Plavix, statin Continue anticoagulation with Lovenox Status: Acute (2) Right leg DVT: Continue Lovenox, with plans to transition to Eliquis on discharge Status: Acute Additional A&P Information Elevated temperature last night. Add incentive spirometry. Check chest x-ray. Check UA with micro. DC Curiel. Lovenox will suffice for DVT prophylaxis Protonix 40 mg a day for GI prophylaxis. Attestations Medical Necessity Statement*: Needs continued hospitalization secondary to CVA with significant impairment awaiting placement. Coding Level of Care Code Acute Recreational Assistant for Mary Jane Sanders Diagnoses Cerebrovascular accident I63.9 Right leg DVT I82.401
--- NOTE | 2020-08-04 14:31 | PC.NURSE ---
Notified Dr Goss that patient refuses telemetry
[2020-08-04] MEDS: atorvastatin 40 mg Tablet 80 MG PO (21:30)
[2020-08-05] VITALS (8 sets, daily range): BP systolic 114–143; BP diastolic 61–83; PULSE 76–91; RESP 16–20; TEMP 36.4–38.2; O2SAT 91–96
[2020-08-05 06:13] LABS: Basophils % 0.3 %; Eosinophils % 0.2 %; Hematocrit 42.1 % (42.0-52.0); Hemoglobin 13.5 g/dL (11.7-16.6); Lymphocytes # 1.3 10^3/uL (0.8-4.8); Lymphocytes % 13.9 %; Mean Corpuscular HGB Conc 32.1 g/dL (30.0-36.0); Mean Corpuscular Hemoglobin 32.1 pg (28.0-34.0); Mean Corpuscular Volume 100.2 fL (80-94); Mean Platelet Volume 9.2 fL (7.4-10.4); Monocytes # 1.6 10^3/uL (0.2-0.9); Monocytes % 16.7 %; Neutrophils # 6.33 10^3/uL (1.8-7.7); Neutrophils % 68.5 %; Nucleated Red Blood Cells % 0 %; Platelet Count 189 10^3/cmm (130-400); Red Cell Distribution Width 13.2 % (12.1-15.1); White Blood Count 9.3 10^3/uL (4.0-10.0)
[2020-08-05 06:33] LABS: Anion Gap 12.9 (5-19); Blood Urea Nitrogen 13 mg/dL (8-23); Calcium 8.6 mg/dL (8.5-10.5); Carbon Dioxide 28 mmol/L (22-29); Chloride 102 mmol/L (98-107); Glucose 109 mg/dL (65-115); Osmolality Calculated 289 mOsm/kg (285-295); Potassium 3.9 mmol/L (3.5-5.1); Sodium 139 mmol/L (136-145)
[2020-08-05] MEDS: clopidogrel 75 mg Tablet PO (07:59)
[2020-08-05] MEDS: pantoprazole DR 40 mg Tablet PO (07:59)
[2020-08-05] MEDS: amlodipine 10 mg Tablet PO (07:59)
[2020-08-05] MEDS: lisinopril 20 mg Tablet PO ×2 (07:59→17:52)
[2020-08-05] MEDS: buprenorphine-naloxone 4-1 mg Film 2 EACH SUBLINGUAL (07:59)
[2020-08-05 08:38] LABS: Procalcitonin 0.35 ng/mL (0-0.5)
[2020-08-05] MEDS: acetaminophen 325 mg Tablet 650 MG PO (09:29)
--- NOTE | 2020-08-05 12:05 | PC.OT ---
OT/PT CO-TREAT ATTEMPT, HOWEVER, PATIENT DECLINED THERAPY THIS DATE. HE WAS EDUCATED ON IMPORTANCE OF THERAPY IN EFFORTS FOR DISCHARGE AND FOR INCREASED WELLNESS/INDEPENDENCE. HE REPORTS PAIN PRIMARY FACTOR FOR NOT WANTING TO WORK, HE WAS EDUCATED HE WILL CONTINUE TO DECLINE AND PAIN WILL WORSEN. HE STATES, I AM OKAY WITH HURTING TWICE BAD AND WILL TRY TOMORROW . HE DECLINED THERAPY TODAY.
[2020-08-05] MEDS: enoxaparin 120 mg/0.8 mL Syringe 110 MG SUBCUT (12:08)
--- NOTE | 2020-08-05 14:48 | P.PN_ITS ---
Subjective Subjective: Interval history: Ap reports he is doing okay. Temperature was noted last night of 100.7. Medications: Reviewed: Yes Vitals/I&O/Wt Last Vital Signs Temp 99.2 F 08/05/20 10:59 Pulse 91 08/05/20 10:59 Resp 18 08/05/20 10:59 BP 143/83 08/05/20 10:59 Pulse Ox 94 08/05/20 10:59 08/04/20 08/05/20 08/05/20 22:59 06:59 14:59 Intake Total 240 / 240 240 / 240 Balance 240 / -60 240 / 240 Physical Exam Narrative: EXAM NARRATIVE: Erwin is a white male, with slurred speech but no apparent distress Neck is supple no lymphadenopathy thyromegaly Cardiovascular regular rate and rhythm without murmur Lungs clear but with diminished breath sounds bilaterally Abdomen is soft nontender with positive bowel sounds Extremities no cyanosis clubbing or edema Neurologic: Right hemiparesis noted, right facial droop. This is unchanged Urinary Catheter Management^: Curiel: Cath Placed During This Visit: yes, but has since been removed by the nurse Reason for Continuing Indwelling Catheter: Other Urinary Catheter Date of Insertion: 08/01/20 Urinary Catheter Time of Insertion: 12:03 Date Urinary Catheter Removed: 08/04/20 Time Urinary Catheter Discontinued: 12:12 Data : 08/05/20 05:40 08/05/20 05:40 A&P Assessment and plan (1) Cerebrovascular accident: Anterior portion left basal ganglia and internal capsule Continue Plavix, statin Continue anticoagulation with Lovenox Status: Acute (2) Right leg DVT: Continue Lovenox, with plans to transition to Eliquis on discharge Status: Acute Additional A&P Information Elevated temperature last night. This has recurred. Chest x-ray was negative. UA with micro still pending. Nurse will bladder scan. I checked a procalcitonin level today which is not elevated. Continue to work on mobility. I suspect this is secondary to atelectasis. Lovenox will suffice for DVT prophylaxis Protonix 40 mg a day for GI prophylaxis. Needs placement following CVA Attestations Medical Necessity Statement*: Needs continued hospitalization for work with rehabilitation secondary to CVA pending placement as well as close follow-up of elevated temperature. Coding Level of Care Code Acute Traffic Sign Supervisor for Mary Jane Sanders Diagnoses Cerebrovascular accident I63.9 Right leg DVT I82.401
--- NOTE | 2020-08-05 17:10 | PC.NURSE ---
pt unable to void from 0800 until now. unable to get the bladder scanner. Curiel catheter placed with 300 ml of concentrated urine out. Dr. Goss notified
[2020-08-05] MEDS: atorvastatin 40 mg Tablet 80 MG PO (21:08)
[2020-08-06] VITALS (7 sets, daily range): BP systolic 115–149; BP diastolic 65–76; PULSE 73–84; RESP 17–18; TEMP 36.6–38.1; O2SAT 90–96
[2020-08-06] MEDS: enoxaparin 120 mg/0.8 mL Syringe 110 MG SUBCUT ×2 (00:01→11:21)
[2020-08-06 08:00] LABS: Add Urine Culture? Yes; Bacteria Urine TRACE /hpf; Bilirubin Urine Neg (Negative); Blood Urine 3+ (Negative); Glucose Urine UA Norm (Normal); Ketones Urine Negative (Negative); Leukocyte Esterase Urine Negative (Negative); Nitrate Urine Negative (Negative); Protein Urine 1+ (Negative); RBC Urine 50-80 /hpf (0-2); Squamous Epithelial Cell Urine 0-4 /hpf (0-5); Urine Appearance SL Hazy (CLEAR); Urine Color Straw (Yellow); Urobilinogen Urine 4 mg/dL (Negative); pH Urine 6 (5-7)
--- NOTE | 2020-08-06 09:39 | PC.CHAP ---
Pastoral Care Encounter/Spiritual Assessment Type of Contact [] Declined event specialist visit [] Patient/Family/Request visit [] Outpatient visit [] Follow-up visit [] Physician referral [] Code/Alert [x] Routine visit [] Staff referral [] Actively dying [x] Patient sleeping [] Family support [] [] Out of room [] Palliative care [] [] Receiving care in room [] Pre-surgical visit [] Trauma [] Long length of stay [] ICU visit [] Other: Relational/Emotional Strength [] Patient feels connected with others/family/visitors/staff [] Distress [] Loneliness/isolation [] Abandonment Spirituality of Patient [] Person of Nohemi [] Attends Adventist of their Nohemi [] Believes in Prayer [] Reads Bible or Protestant materials [] There are Spiritual issues to be addressed Pond Worker Interventions [] Prayer [] Active listening [] Non-anxious presence [] Spiritual/emotional support [] Crisis/trauma care [] Spiritual counseling [] Bereavement support [] Provided bereavement packet [] Provided Bible/devotional materials [] Provided toy/stuffed animal, coloring book to patient or family member [] Provided Communion [] Anointing/[place] [] Salvation [] Completed spiritual assessment [] Other: Impact on Illness or Injury [] Angry [] Fearful [] Anxious [] Often cries [] Exhaustion [] Unable to work [] Unable to attend sabianist [] Unable to walk/stand [] Unable to read [] Unable to drive [] Unable to eat/drink [] Unable to sleep [] Unable to be with family [] Patient intubated [] Other: Summary Time spent with patient
[2020-08-06] MEDS: pantoprazole DR 40 mg Tablet PO (09:53)
[2020-08-06] MEDS: buprenorphine-naloxone 4-1 mg Film 2 EACH SUBLINGUAL (09:53)
[2020-08-06] MEDS: clopidogrel 75 mg Tablet PO (09:53)
[2020-08-06] MEDS: amlodipine 10 mg Tablet PO (09:53)
[2020-08-06] MEDS: lisinopril 20 mg Tablet PO ×2 (09:53→18:10)
--- NOTE | 2020-08-06 10:01 | P.PN_ITS ---
Documented by User: ERICKA Fischer STDDORITA 08/06/20 10:35 Subjective Subjective: Interval history: Ap reports he is doing okay. Patient afebrile today. Reports pain on dorsal surface of left foot with dorsiflexion of left foot. Pain does not radiate up leg. Patient reports he's had this pain since before hospital admission and that this pain is due to a fall. Medications: Reviewed: Yes Vitals/I&O/Wt Last Vital Signs Temp 98.8 F 08/06/20 08:00 Pulse 81 08/06/20 08:00 Resp 18 08/06/20 08:00 BP 121/72 08/06/20 08:00 Pulse Ox 96 08/06/20 08:00 08/05/20 08/06/20 08/06/20 22:59 06:59 14:59 Output Total 300 / 300 350 / 650 Balance -300 / -60 -350 / -410 Physical Exam Narrative: EXAM NARRATIVE: EXAM NARRATIVE: Ap is a white male, with slu rred speech but no apparent distress Neck is supple no lymphadenopathy thyromegaly Cardiovascular regular rate and rhythm without murmur Lungs clear but with diminished breath sounds bilaterally Abdomen is soft nontender with positive bowel sounds Extremities no cyanosis clubbing or edema. Increased strength in right arm and right leg compared to previous day. Neurologic: Right hemiparesis noted, right facial droop. This is unchanged Urinary Catheter Management^: Curiel: Cath Placed During This Visit: yes, but has since been removed by the nurse Reason for Continuing Indwelling Catheter: Acute Urinary Retention or Obstruction Urinary Catheter Date of Insertion: 08/05/20 Urinary Catheter Time of Insertion: 15:15 Date Urinary Catheter Removed: 08/04/20 Time Urinary Catheter Discontinued: 12:12 Data : 08/05/20 05:40 08/05/20 05:40 A&P Assessment and plan (1) Cerebrovascular accident: Anterior portion left basal ganglia and internal capsule Continue Plavix, statin Continue anticoagulation with Lovenox Status: Acute (2) Right leg DVT: Continue Lovenox, with plans to transition to Eliquis on discharge Status: Acute Additional A&P Information Patient afebrile today. UA showed 3+ RBC possibly caused by catheter placement. Negative leukocyte esterase and nitrate. Foot x-ray to rule out trauma. Continue to work on mobility. Lovenox will suffice for DVT prophylaxis Protonix 40mg a day for GI prophylaxis Patient accepted to rehab facility Coding Level of Care Code Acute Supervisor [employer] for Chg Fwd Diagnoses Cerebrovascular accident I63.9 Right leg DVT I82.401 Documented by User: Ke Goss MD 08/06/20 10:48 Subjective Subjective: Interval history: 3 with above. No additions. I interviewed the patient as well. Physical Exam Narrative: EXAM NARRATIVE: Agree with above. No additions. I also examined the patient. Urinary Catheter Management^: Curiel: Cath Placed During This Visit: no Data : 08/05/20 05:40 08/05/20 05:40 A&P Additional A&P Information Agree with above Continue Plavix and statin for stroke prevention Continue Lovenox with transition to Eliquis on discharge for DVT Secondary to left foot pain, will obtain x-ray prior to discharge Procalcitonin normal, no evidence of infection on chest x-ray and urinalysis. Attestations Medical Necessity Statement*: Possible discharge today, but must first delineate x-ray of left foot. Coding Level of Care Code Acute Supervisor [employer] for g Fwd Diagnoses Cerebrovascular accident I63.9 Right leg DVT I82.401
--- NOTE | 2020-08-06 10:26 | PC.OT ---
PATIENT AGGRESSIVELY DECLINED PT/OT TODAY WITH THERAPY ATTEMPT. HE WAS EDUCATED ON IMPORTANCE OF PARTICIPATION FOR PLACEMENT AND TO IMPROVE STRENGTH AND WELLNESS. WILL ATTEMPT TOMORROW.
--- NOTE | 2020-08-06 10:45 | XR_ITS ---
WS: [id number] LEFT FOOT: 2 VIEW(S) TECHNIQUE: AP and lateral. HISTORY: pain COMPARISON: None available. No acute fracture or dislocation. Normal tarsal/metatarsal alignment. Small amount of edema surrounding the foot. Mild peripheral arterial calcification. XR/XR foot LT 2V 13232 IMPRESSION: 1. Soft tissue edema surrounding the foot and peripheral arterial calcificatio ns. 2. No fracture.
--- NOTE | 2020-08-06 13:05 | PM.DCS ---
Discharge Providers Date of Admission: 08/01/20 12:00 Date of Discharge: August 06, 2020 Attending Provider at Admission: Alex Pena MD Attending Provider at Discharge: Ke Goss MD Diagnoses at Discharge Discharge Diagnosis (1) Cerebrovascular accident: Status: Acute (2) Right leg DVT: Status: Acute Reason for Visit Reason for Visit: neuro deficits Hospital Course Hospital Course Ap is a 75-year-old white male who presented to the hospital on August 01. He had a prior history of DVT, and atrial flutter status post ablation. He was not on any anticoagulation. He presented with a CVA, right facial droop, right hemiparesis. He was not a candidate for TPA. CTA did not demonstrate any flow-limiting stenosis or clot. While in the hospital he was monitored clear fully until August 06. At that time he appeared stable and was able to be discharged. During his hospital stay he had a venous duplex of his lower extremities, demonstrating right leg DVT, unknown if acute. Repeat head CT done on August 02 demonstrated no bleeding, acute infarct noted left basal ganglia and internal capsule. Echocardiogram was unrevealing. Telemetry while in the hospital demonstrated sinus rhythm. He will follow up with a primary care provider at longterm facility as well as neurology. Physical Exam Narrative: EXAM NARRATIVE: General exam no apparent distress Neurologic exam: Right hemiparesis. 1/6 strength noted right upper extremity and 2/6 strength noted right lower extremity. Occasionally entered poses a wrong word, speech is soft and somewhat rambling but when redirected he can ask appropriate questions. Speech slurred. Right facial droop noted. Cardiovascular regular in rhythm without murmur Lungs clear Abdomen is soft with positive bowel sounds Extremities no cyanosis clubbing or edema Urinary Catheter Management^: Curiel: Cath Placed During This Visit: yes, but has since been removed by the nurse Reason for Continuing Indwelling Catheter: Acute Urinary Retention or Obstruction Urinary Catheter Date of Insertion: 08/05/20 Urinary Catheter Time of Insertion: 15:15 Date Urinary Catheter Removed: 08/04/20 Time Urinary Catheter Discontinued: 12:12 Discharge Data Data Completed and Pending: Completed Studies During Hospitalization Category Date Time Status CT head wo con* 7 0450 Stat Cat Scan 08/02/20 10:[address] head wo con* 7 0450 Urgent Cat Scan 08/01/20 10:30 Completed CTA head neck [CT angio headneck* 7 0496/72268] Urgent Cat Scan 08/01/20 10:30 Completed XR chest 1V vinay ble 40613 Routine Exams 08/04/20 12:07 Completed XR foot LT 2V 736 20 Urgent Exams 08/06/20 10:45 Completed CV echo complete* 83295 Routine Ultrasound 08/01/20 13:57 [place] [address] Routin e Ultrasound 08/01/20 13:57 Completed US renal BI* 7677 0 Routine Ultrasound 08/01/20 15:35 Completed Pending at discharge Category Date Time Status Urine Culture [facility] 08/05/20 17:10 Received MR head wo con* 7 0551 Stat MRI 08/04/20 13:00 Unverified Labs from last 24 hours 08/05/20 08/04/20 17:10 17:10 Urine Color Straw Urine Appearance Sl hazy Urine pH 6 Ur Specific Gravit y 1.020 Urine Protein 1+ H Urine Glucose (UA) Norm Urine Ketones Negative Urine Blood 3+ H Urine Nitrate Negative Urine Bilirubin Neg Urine Urobilinogen 4 H Ur Leukocyte Miladys ase Negative Urine RBC 50-80 H Urine WBC None Ur Squamous Epith Cells 0-4 H Amorphous Sediment Not Reportable Urine Bacteria Trace Vitals: Last Vital Signs Temp 98.8 F 08/06/20 08:00 Pulse 81 08/06/20 08:00 Resp 18 08/06/20 08:00 BP 121/72 08/06/20 08:00 Pulse Ox 96 08/06/20 08:00 Discharge Plan Discharge Patient Disposition: Xfer SNF Condition: Stable Prescriptions: New amlodipine 10 mg Tablet 10 mg PO DAILY Qty: 30 RF: 0 atorvastatin 40 mg Tablet 80 mg PO Q24H Qty: 60 RF: 0 clopidogrel 75 mg Tablet 75 mg PO DAILY Qty: 30 RF: 0 lisinopril 20 mg Tablet 20 mg PO BID Qty: 60 RF: 0 pantoprazole 40 mg Tablet,Delayed Release (Dr/Ec) 40 mg PO DAILY Qty: 30 RF: 0 Eliquis 5 mg tablet 5 mg PO BID Qty: 60 RF: 0 Continued Suboxone 8-2 mg Film 1 film SUBLINGUAL DAILY RF: 0 Discontinued aspirin [Aspir-81] 81 mg Tablet,Delayed Release (Dr/Ec) 81 mg PO DAILY RF: 0 Discharge Orders: Discharge Order (Routine); Ordered 08/06/20 Ordered By: Ke Goss Referrals: Leeann Beltrán MD [Physician] - 2 weeks (Follow-up CVA) Discharge Diet: Cardiac Discharge Activity: Increase activity as tolerated Activity Restrictions/Additional Instructions: Take all medicine as prescribed Neurology, 2 weeks Follow-up primary care provider at longterm facility in the next 1 to 3 days with CBC and BMP Discharge Attestations Time Spent in Discharge Care*: greater than 30 min Quality Metrics Clinical Quality Measures During this hospital stay, did patient experience: Stroke Contraindication to Antithrombotic: Antithrombotic prescribed Contraindication to Anticoagulation: Anticoagulation prescribed Contraindication to Statin: Statin prescribed Coding Level of Care Code Acute Healthcare Risk Control Consultant for Chg Fwd Diagnoses Cerebrovascular accident I63.9 Right leg DVT I82.401
--- NOTE | 2020-08-06 16:16 | PC.SOCIAL ---
*IMM Updated* Patient received updated IMM. This junior technical writer initialled and placed in chart.
== END 2020-08-06 18:46 | disposition skilled nursing facility (03) | DRG 65 ==
LOC: ER 12:15 → MEDSURG 12:28
PROVIDERS: Admitting Provider Family Medicine; Emergency Provider Emergency Medicine; Visit Provider Internal Medicine
DX: I63.9 Cerebral infarction, unspecified (principal); G81.91 Hemiplegia, unspecified affecting right dominant side; I48.92 Unspecified atrial flutter; R47.81 Slurred speech; R29.810 Facial weakness; Z86.718 Personal history of other venous thrombosis and embolism; Z79.82 Long term (current) use of aspirin; G89.29 Other chronic pain; R29.707 NIHSS score 7; R29.717 NIHSS score 17
CPT/HCPCS: 12345; 36415; 36416; 51702; 51798; 70450; 70496; 70498; 71045; 73620; 76770; 80048; 80053; 80061; 80306; 81001; 82962; 83036; 83721; 83735; 83880; 84100; 84145; 84443; 85025; 85610; 85730; 87086; 92507; 92523; 92526; 92610; 93005; 93306; 93970; 96372; 97112; 97162; 97165; 97530; 99285; J0573; J1650; J2405; J3490; J7030; Q9967

== ENCOUNTER 2020-08-11 15:45 | Outpatient (CLI) | payer MEDICARE, MEDICAID, SELFPAY ==
[2020-08-11 17:10] LABS: Uric Acid 6.8 mg/dL (3.4-7.0)
== END 2020-08-11 15:46 | disposition home or self-care (01) ==
LOC: LAB 15:51
PROVIDERS: Visit Provider Internal Medicine
DX: M10.9 Gout, unspecified (principal)
CPT/HCPCS: 84550

== ENCOUNTER 2020-08-14 05:27 | Outpatient (CLI) | payer MEDICARE, MEDICAID, SELFPAY ==
[2020-08-14 06:22] LABS: Alanine Aminotransferase 42 U/L (0-41); Albumin Level 3.2 g/dL (3.5-5.2); Alkaline Phosphatase 247 IU/L (40-130); Anion Gap 18.5 (5-19); Aspartate Amino Transferase 41 U/L (0-40); Blood Urea Nitrogen 53 mg/dL (8-23); Calcium 8.9 mg/dL (8.5-10.5); Carbon Dioxide 26 mmol/L (22-29); Chloride 101 mmol/L (98-107); Cholesterol 96 mg/dL (0-200); Glucose 101 mg/dL (65-115); HDL Cholesterol 31 mg/dL (60-100); LDL Cholesterol Calculated 47 mg/dL (50-129); LDL HDL Ratio 1.52 RATIO (0.00-3.22); Osmolality Calculated 305 mOsm/kg (285-295); Sodium 140 mmol/L (136-145); Total Bilirubin 0.7 mg/dL (0.15-1.2); Total Protein 6.2 g/dL (6.6-8.7); Triglycerides 90 mg/dL (0-150)
[2020-08-14 06:25] LABS: Potassium 5.5 mmol/L (3.5-5.1)
== END 2020-08-14 05:28 | disposition home or self-care (01) ==
PROVIDERS: Visit Provider Internal Medicine
DX: R60.9 Edema, unspecified (principal); I50.9 Heart failure, unspecified
CPT/HCPCS: 80053; 80061

== ENCOUNTER 2020-08-15 05:25 | Outpatient (CLI) | payer MEDICARE, MEDICAID, SELFPAY ==
[2020-08-15 05:58] LABS: Basophils % 0.3 %; Eosinophils % 0.3 %; Hematocrit 36.9 % (42.0-52.0); Hemoglobin 11.6 g/dL (11.7-16.6); Lymphocytes # 1.3 10^3/uL (0.8-4.8); Lymphocytes % 10.8 %; Mean Corpuscular HGB Conc 31.4 g/dL (30.0-36.0); Mean Corpuscular Hemoglobin 31.7 pg (28.0-34.0); Mean Corpuscular Volume 100.8 fL (80-94); Mean Platelet Volume 10.2 fL (7.4-10.4); Monocytes # 0.8 10^3/uL (0.2-0.9); Monocytes % 6.6 %; Neutrophils # 9.42 10^3/uL (1.8-7.7); Neutrophils % 81.3 %; Nucleated Red Blood Cells % 0 %; Platelet Count 490 10^3/cmm (130-400); Red Blood Count 3.66 10^6/uL (4.1-5.3); Red Cell Distribution Width 14.4 % (12.1-15.1); White Blood Count 11.6 10^3/uL (4.0-10.0)
[2020-08-15 06:09] LABS: Blood Urea Nitrogen 67 mg/dL (8-23); Calcium 8.5 mg/dL (8.5-10.5); Carbon Dioxide 27 mmol/L (22-29); Chloride 105 mmol/L (98-107); Glucose 102 mg/dL (65-115); Osmolality Calculated 312 mOsm/kg (285-295); Sodium 141 mmol/L (136-145)
== END 2020-08-15 05:26 | disposition home or self-care (01) ==
PROVIDERS: Visit Provider Internal Medicine
DX: I10 Essential (primary) hypertension (principal); E87.5 Hyperkalemia
CPT/HCPCS: 80048; 85025

== ENCOUNTER → 2020-10-20 10:53 | Outpatient (BNVA) | payer MEDICARE, MEDICAID, SELFPAY | PROVIDERS: PCP Internal Medicine; Visit Provider Nurse Practitioner | DX: I69.351 Hemiplegia and hemiparesis following cerebral infarction affecting right dominant side (principal) | CPT/HCPCS: 99205 ==

== ENCOUNTER 2020-11-18 11:26 | Emergency (ER) | payer OTHER, MEDICARE, MEDICAID, SELFPAY ==
[2020-11-18 11:41] VITALS: BP 102/68; PULSE 72; RESP 18; TEMP 37; O2SAT 94; BMI 30.4
--- NOTE | 2020-11-18 12:14 | XRR_ITS ---
PROCEDURE INFORMATION: Exam: XR Right Hand Exam date and time: 11/18/2020 12:14 PM Age: 75 years old Clinical indication: Injury or trauma; Blunt trauma (contusions or hematomas); Wrist and hand; Right; Injury date: 11/16/20; Injury details: Fall, pain and swelling entire hand and wrist; Additional info: Fall injury TECHNIQUE: Imaging protocol: XR Right hand. Views: 3 or more views. COMPARISON: No relevant prior studies available. FINDINGS: Bones/joints: No fracture, dislocation or other acute bone or joint abnormalities are seen in the right hand. Scattered chronic degenerative osteoarthritis is present with joint space narrowing, sclerosis and small osteophytes. Soft tissues: Normal. Vasculature: There is prominent atherosclerotic calcification in the forearm. XR/XR hand RT min 3V* 17443 IMPRESSION: Chronic degenerative osteoarthritis. No acute abnormality.
--- NOTE | 2020-11-18 12:14 | XRR_ITS ---
PROCEDURE INFORMATION: Exam: XR Right Wrist Exam date and time: 11/18/2020 12:14 PM Age: 75 years old Clinical indication: Injury or trauma; Blunt trauma (contusions or hematomas); Wrist and hand; Right; Injury date: 11/16/20; Injury details: Fall, pain and swelling entire hand and wrist; Additional info: Fall injury TECHNIQUE: Imaging protocol: XR Right wrist. Views: 3 or more views. COMPARISON: No relevant prior studies available. FINDINGS: Bones/joints: No fracture or other acute abnormalities are seen. Mild chronic degenerative changes are present in the wrist with joint space narrowing and small osteophytes. Soft tissues: Normal. Vasculature: Prominent atherosclerotic calcifications are present. XR/XR wrist RT min 3V* 49086 IMPRESSION: Mild chronic DJD. No acute abnormality.
[2020-11-18 12:35] VITALS: PULSE 72
--- NOTE | 2020-11-18 12:35 | ED_ITS ---
HPI - Extremity Problem General: Chief complaint: Extremity Injury, Upper Stated complaint: RUE SWELLING/NO INJURY Time Seen by Provider: 11/18/20 12:34 History of Present Illness: HPI Narrative: Patient is a 75-year-old male comes to the ED right hand and wrist pain. Patient has a past medical history of a stroke with right-sided upper and lower extremity weakness. Patient said he has had swelling in his right hand and wrist for several weeks now. Yesterday he started having more pain in right hand and wrist along with the swelling. yesterday after he was transferring to get onto the bed and he fell down on right hand onto bed. He is unsure if he might of injured his right hand or wrist when doing this. Associated symptoms: Deny chest pain, fever(s) or rash Review of Systems Const: Denies: fever(s), chills or fatigue Eyes: Denies: change in vision or eye discomfort ENMT: Denies: throat pain, odynophagia, nasal discharge or nasal congestion Card: Denies: chest pain, palpitations, edema, swelling of feet/ankles, dyspnea on exertion or orthopnea Resp: Denies: dyspnea, productive cough or non-productive cough GI: Denies: abdominal pain, nausea, vomiting, diarrhea, constipation or hematochezia : Denies: flank pain, difficulty urinating, dysuria or hematuria Musc: Reports: extremity pain (Right hand and wrist ) and extremity swelling (right hand and wrist); Denies: neck pain or back pain Skin/Breast: Denies: rash or new lesions Neuro: Denies: headache(s), numbness in extremities or weakness in extremities FOR[facility]LY [facility], [facility] ED PFSH: Medical History History of atrial flutter History of deep venous thrombosis (DVT) of distal vein of right lower extremity Urinary retention Surgical History History of radiofrequency ablation procedure for cardiac arrhythmia Family History Other CAD (coronary artery disease) Diabetes Stroke Social History Smoking and tobacco status: never smoked Alcohol intake: current Alcohol intake frequency: 0-2 Drinks per Day Marital status: Current occupational status: disabled History of recent travel: No Physical Exam Const: COMMON NORMALS: no acute distress, patient oriented x3 and alert GENERAL APPEARANCE: cooperative and comfortable HENMT: COMMON NORMALS: normocephalic HEAD & SCALP: normocephalic MOUTH: Normal oral and palatal mucosa present THROAT: posterior oropharynx normal and uvula midline Neck/C-Spine: COMMON NORMALS: supple GENERAL: Yes normal visual inspection Resp: COMMON NORMALS: normal respiratory effort, No retractions, No use of accessory muscles and clear to auscultation bilaterally AUSCULTATION: clear to auscultation bilaterally Cardio: COMMON NORMALS: regular rate, regular rhythm, S1 normal heart sound present, S2 normal heart sound present, No gallops present (Cardio), No clicks present (Cardio), No murmurs present (Cardio) and Peripheral pulses 2+ throughout RATE: regular rate RHYTHM: regular rhythm HEART SOUNDS: S1 normal heart sound present and S2 normal heart sound present PERIPHERAL PULSES: Peripheral pulses 2+ throughout GI: COMMON NORMALS: Normal to inspection, nondistended, normoactive bowel sounds present, Soft to palpation, non-tender and no masses PALPATION: Yes Soft to palpation : COMMON NORMALS: Yes no CVA tenderness BLADDER/KIDNEY EXAM: Yes no CVA tenderness Back/Pelvis: COMMON NORMALS: no CVA tenderness Extremity: GENERAL: Yes normal exam except as noted RIGHT UPPER EXTREMITY: Yes hand & digits Right hand and digits: Yes inspection (Visible swelling in right hand and wrist, no visible deformity seen.), Yes palpation (Tenderness over second and third digits), Yes ROM exam (Pain with movement of second and third digit.) and Yes neurovascular exam (Intact) Neuro: COMMON NORMALS: patient oriented x3 and moves all extremities SENSORIUM/ORIENTATION: Yes alert OTHER: Patient has some residual right upper and lower extremity weakness due to past stroke. Course Vital Signs: Vital signs: Vital Signs Temperature 98.6 F 11/18/20 11:41 Pulse Rate 72 11/18/20 12:53 Respiratory Rate 18 11/18/20 12:53 Blood Pressure 102/68 11/18/20 12:53 Pulse Oximetry 94 11/18/20 12:53 MDM - Extremity (Nontraumatic) MDM Narrative: Medical decision making narrative: Patient is a 75-year-old male comes to the ED with right hand pain and swelling. Patient has a history of stroke and right sided upper and lower extremity weakness. Exam shows some swelling in right hand and wrist but no visible deformity noted. He is neurovascular intact and has tenderness upon palpation of his third and fourth digits. X-ray showed no acute fractures reduced highlight some degenerative joint disease in right hand. Due to patient's symptoms, history, exam findings and and degenerative joint disease of his hand I placed an order to case management for patient to be referred to Ortho for reevaluation. Patient was diagnosed with right hand pain and degenerative joint disease of right hand. He was discharged home and told to take loty-rqt-lqpehkp pain meds and to ice rest and elevate right hand. 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 Patient understood agree with plan. Imaging Data^: Xray Ortho: Attestation: I personally reviewed and interpreted this imaging study as follows: Radiologist's impression: [place] [address] XRay Report Signed Patient: Ap Chavez Unit #: [id number] : 1945 Age/Sex: 75 / M ADM Date: 11/18/20 Loc: ER Room/Bed: Attending Dr: Ordering Provider/Ordering MD: Giovany Neal Date of Service: 11/18/20 Procedure(s): XR wrist RT min 3V* 36425 Accession Number(s): [id number] Report Number: [id number] PROCEDURE INFORMATION: Exam: XR Right Wrist Exam date and time: 11/18/2020 12:14 PM Age: 75 years old Clinical indication: Injury or trauma; Blunt trauma (contusions or hematomas); Wrist and hand; Right; Injury date: 11/16/20; Injury details: Fall, pain and swelling entire hand and wrist; Additional info: Fall injury TECHNIQUE: Imaging protocol: XR Right wrist. Views: 3 or more views. COMPARISON: No relevant prior studies available. FINDINGS: Bones/joints: No fracture or other acute abnormalities are seen. Mild chronic degenerative changes are present in the wrist with joint space narrowing and small osteophytes. Soft tissues: Normal. Vasculature: Prominent atherosclerotic calcifications are present. XR/XR wrist RT min 3V* 53037 IMPRESSION: Mild chronic DJD. No acute abnormality. Dictated By: John Candelario Signed By: John Candelario Signed Date/Time: 11/18/20 1259 DD/ [address] [address] XRay Report Signed Patient: Ap Chavez Unit #: [id number] : 1945 Age/Sex: 75 / M ADM Date: 11/18/20 Loc: ER Room/Bed: Attending Dr: Ordering Provider/Ordering MD: Giovany Neal Date of Service: 11/18/20 Procedure(s): XR hand RT min 3V* 98633 Accession Number(s): [id number] Report Number: [id number] PROCEDURE INFORMATION: Exam: XR Right Hand Exam date and time: 11/18/2020 12:14 PM Age: 75 years old Clinical indication: Injury or trauma; Blunt trauma (contusions or hematomas); Wrist and hand; Right; Injury date: 11/16/20; Injury details: Fall, pain and swelling entire hand and wrist; Additional info: Fall injury TECHNIQUE: Imaging protocol: XR Right hand. Views: 3 or more views. COMPARISON: No relevant prior studies available. FINDINGS: Bones/joints: No fracture, dislocation or other acute bone or joint abnormalities are seen in the right hand. Scattered chronic degenerative osteoarthritis is present with joint space narrowing, sclerosis and small osteophytes. Soft tissues: Normal. Vasculature: There is prominent atherosclerotic calcification in the forearm. XR/XR hand RT min 3V* 70407 IMPRESSION: Chronic degenerative osteoarthritis. No acute abnormality. Dictated By: John Candelario Signed By: John Candelario Signed Date/Time: 11/18/20 1259 DD/ 1257 Discharge Plan Discharge Patient Disposition: Home Clinical Impression: Right hand pain Degenerative joint disease of hand, right Qualifiers: Osteoarthritis type: primary Qualified Code(s): M19.041 - Primary osteoarthritis, right hand Condition: Stable Prescriptions: No Action magnesium hydroxide 400 mg/5 mL suspension 30 ml PO DAILY PRNRF: 0 acetaminophen [Tylenol] 325 mg capsule 325 mg PO Q6H PRNRF: 0 sertraline [Zoloft] 50 mg tablet 50 mg PO DAILY RF: 0 artifi.tears(hypromellose)(PF) 0.3 % drops 2 drp ophthalmic (eye) Q4H PRNRF: 0 nystatin [Nystop] 100,000 unit/gram powder 1 applic topical BID RF: 0 ondansetron HCl [Zofran] 4 mg tablet 4 mg PO Q4H PRNRF: 0 tramadol [Ultram] 50 mg tablet 50 mg PO Q6H PRNRF: 0 amlodipine 10 mg Tablet 10 mg PO DAILY Qty: 30 RF: 0 atorvastatin 40 mg Tablet 80 mg PO Q24H Qty: 60 RF: 0 clopidogrel 75 mg Tablet 75 mg PO DAILY Qty: 30 RF: 0 pantoprazole 40 mg Tablet,Delayed Release (Dr/Ec) 40 mg PO DAILY Qty: 30 RF: 0 Eliquis 5 mg tablet 5 mg PO BID Qty: 60 RF: 0 Discharge Orders: Discharge ED (Routine); Ordered 11/18/20 Ordered By: Giovany Neal Referrals: Sultana Randle PA [Primary Care Provider] - Discharge Diet: Regular Discharge Activity: Increase activity as tolerated Patient Instructions: Osteoarthritis (ED) Activity Restrictions/Additional Instructions: Follow-up with medical provider as directed. Case management should be contacting you in the next several days set up appoint with orthopedic doctor. Take medications as prescribed. Take paev-abu-wdhyfcz ibuprofen, ice and elevate right hand. Return to the ER or your medical provider if condition worsens. Please read and understand discharge instructions. Thank you for choosing [facility] for your healthcare needs today. Please realize this is an emergency room and that we are providing you with a medical screening exam and this may not be complete and all inclusive of all the testing and or work up that you may need to determine your ailment or severity of your illness. It is very important that you follow up as instructed or that you return to the Emergency Department should you have concerns or if your condition changes or worsens in any way. Coding Level of Care Code ED Facilities Locator for Mary Jane Sanders Exam Comprehensive
[2020-11-18] MEDS: HYDROcodone-acetaminophen 7.5-325 mg Tablet 1 TAB PO (12:51)
[2020-11-18 12:53] VITALS: BP 102/68; PULSE 72; RESP 18; O2SAT 94
--- NOTE | 2020-11-19 12:02 | DCPLANNER ---
Addendum entered by Shirley Hazel 12/04/20 10:47: Lena from ortho called case hardener and let case hardener know that patient will need to be referred to a hand specialist. farm general manager called patient at phone number [phone], unable to speak with patient and unable to leave a voicemail at this time. Addendum entered by Shirley Hazel 11/19/20 12:07: Patient has [employer] insurance, case hardener emailed patients information to Sylvie with [employer] [facility] [employer] [facility], so that the authorization process could be started. Original Note: farm general manager had message to schedule a follow up appointment for patient with ortho. farm general manager called the ortho clinic, spoke with Lena, gave clinic patients information. farm general manager was told that patients information would be printed and reviewed. Clinic will call patient with appointment information.
== END 2020-11-18 14:08 | disposition home or self-care (01) ==
PROVIDERS: Emergency Provider Physician Assistant; PCP Physician Assistant
DX: M19.041 Primary osteoarthritis, right hand (principal); Z79.01 Long term (current) use of anticoagulants; Z79.02 Long term (current) use of antithrombotics/antiplatelets
CPT/HCPCS: 73110; 73130; 99283

== ENCOUNTER 2021-01-01 08:37 | Outpatient (CLI) | payer BC, SELFPAY ==
--- NOTE | 2021-01-01 08:47 | CT_ITS ---
WS: [id number] CT CERVICAL SPINE HISTORY: C3 CERVICAL FX TECHNIQUE: Contiguous 2.5 mm axial imaging performed through the entire cervical spine. Sagittal and coronal reformats also performed. All CT scans at [facility] use at least one of these do se optimization techniques: automated exposure control; mA and/or kV adjustment per patient size (inc ludes targeted exams where dose is matched to clinical indication); or iterative reconstruction. DLP: 1800.34 mGycm COMPARISON: Cervical spine radiographs 12/30/2020 C4 anterolisthesis by 3 mm. Mild disc space narrowing at C5-6 and C6-7. There is a lucency extending obliquely through the C3 vertebral body which corresponds to the abnormality seen on recent radiograp h. There is no displacement. Age-indeterminate fracture. This could be a healed fracture. There is no prevertebral soft tissue edema. No displacement or retropulsion or involvement of the posterior [place] ents. The odontoid process is intact. C2-C3: Small central disc protrusion. No stenosis. C3-C4: Diffuse osteophytic ridging extending into the foramina, greatest on the RIGHT. Severe RIGHT f oraminal stenosis and mild on the LEFT. Central disc protrusion and mild central stenosis. C4-C5: Diffuse osteophytic ridging with moderate to severe facet joint arthritis. Mild central with s evere bilateral foraminal stenosis. C5-C6: Diffuse osteophytic ridging with moderate facet joint arthritis. Mild central and RIGHT forami nal stenosis. Severe LEFT foraminal stenosis. C6-C7: Mild bilateral foraminal stenosis. C7-T1: Normal. Soft tissues are normal. Lung apices are clear. CT/CT cervical spin wo con* [id number] IMPRESSION: 1. Age-indeterminate oblique fractures through the C3 vertebral body. No preve rtebral soft tissue swelling. This may be a remote fracture. For further evalua tion to determine chronicity MRI would provide additional information concernin g marrow edema. 2. Severe multilevel facet joint arthritis and foraminal stenosis as above. Mo st significant on the RIGHT at C3-4, bilaterally at C4-5 and on the LEFT at C5- 6. Notified LYNDA Youssef at 01/01/2021 9:16 AM. Sultana Randle is not available. Report discussed with Pat.
== END 2021-01-01 08:38 | disposition home or self-care (01) ==
PROVIDERS: PCP Physician Assistant; Visit Provider Family Medicine
DX: S12.200A Unspecified displaced fracture of third cervical vertebra, initial encounter for closed fracture (principal); X58.XXXA Exposure to other specified factors, initial encounter; M47.812 Spondylosis without myelopathy or radiculopathy, cervical region
CPT/HCPCS: 72125

== ENCOUNTER → 2021-01-06 09:24 | Outpatient (BNVA) | payer MEDICARE, MEDICAID, SELFPAY | PROVIDERS: PCP Physician Assistant; Visit Provider Urology | DX: R33.9 Retention of urine, unspecified (principal); N39.41 Urge incontinence | CPT/HCPCS: 81003 ==

== ENCOUNTER → 2021-01-08 15:10 | Outpatient (BNVA) | payer MEDICARE, MEDICAID, SELFPAY | PROVIDERS: PCP Physician Assistant; Referring Provider Physician Assistant; Visit Provider Orthopaedic Surgery | DX: S12.200A Unspecified displaced fracture of third cervical vertebra, initial encounter for closed fracture (principal); X58.XXXA Exposure to other specified factors, initial encounter; M47.892 Other spondylosis, cervical region; Z46.89 Encounter for fitting and adjustment of other specified devices; S12.200D Unspecified displaced fracture of third cervical vertebra, subsequent encounter for fracture with routine healing; X58.XXXD Exposure to other specified factors, subsequent encounter | CPT/HCPCS: 72040; 97760; L0174 ==

== ENCOUNTER 2021-01-08 16:28 | Outpatient (CLI) | payer MEDICARE, MEDICAID, SELFPAY | END 2021-01-08 16:29 | disposition home or self-care (01) | LOC: SPT 16:29 | PROVIDERS: PCP Physician Assistant; Visit Provider Orthopaedic Surgery | DX: Z46.89 Encounter for fitting and adjustment of other specified devices (principal); S12.200D Unspecified displaced fracture of third cervical vertebra, subsequent encounter for fracture with routine healing; X58.XXXD Exposure to other specified factors, subsequent encounter | CPT/HCPCS: 97760; L0174 ==

== ENCOUNTER 2021-03-26 14:35 | Outpatient (RCR) | payer OTHER, SELFPAY | END 2021-04-19 23:59 | disposition home or self-care (01) | LOC: SPT 14:35 | PROVIDERS: PCP Physician Assistant; Referring Provider Family Medicine; Visit Provider Family Medicine | DX: R26.9 Unspecified abnormalities of gait and mobility (principal) | CPT/HCPCS: 97110; 97116; 97161 ==

== ENCOUNTER 2021-04-20 06:00 | Outpatient (RCR) | payer OTHER, SELFPAY | END 2021-05-19 16:50 | disposition home or self-care (01) | LOC: SPT 06:00 | PROVIDERS: PCP Physician Assistant; Referring Provider Family Medicine; Visit Provider Family Medicine | DX: R26.9 Unspecified abnormalities of gait and mobility (principal) | CPT/HCPCS: 97110 ==

== ENCOUNTER 2022-05-04 16:01 | Outpatient (CLI) | payer OTHER, SELFPAY ==
--- NOTE | 2022-05-04 16:20 | CT_ITS ---
WS: [id number] CT LUMBAR SPINE TECHNIQUE: Noncontrast CT of the lumbar spine with coronal and sagittal reformatted images. CLINICAL INFORMATION: VETERBROGENIC LOW BACK PAIN COMPARISON: None. DLP: 1464.[address] scans at [facility] use at least one of these dose optimization techniques: automated e xposure control; mA and/or kV adjustment per patient size (includes targeted exams where dose is matc hed to clinical indication); or iterative reconstruction. FINDINGS: Mild lumbar curve. Chronic appearing compression T12 vertebral body with mild anterior wedging. No acute appearing compression fractures. Adrenal glands are normal. Aortic calcification. L1-L2: Mild facet arthropathy. Spinal canal and foramen are patent. L2-L3: Slight retrolisthesis. Mild disc bulging with mild central canal stenosis. Narrowing of the walker barticular recess bilaterally. Mild facet arthropathy. Mild bilateral foraminal narrowing. L3-L4: Mild central canal stenosis. Moderate facet arthropathy. Narrowing of the subarticular recess bilaterally. Mild LEFT greater than RIGHT foraminal narrowing. L4-L5: Shallow central disc protrusion. Mild central canal stenosis. Slight impingement traversing L5 nerve roots. Moderate facet arthropathy. Mild RIGHT foraminal narrowing. L5-S1: Osteophytic ridging. Spinal canal and foramen are patent. Moderate facet arthropathy. Visualized pelvic bony structures: Normal. Paravertebral soft tissues: Normal. CT/CT lumbar spine wo con* [id number] IMPRESSION: 1. Mild lumbar curve. No acute compression. Chronic anterior wedging at T12. 2. Mild central canal stenosis L2-L3, L3-L4, L4-L5 with mild disc bulging and narrowing of the subarticular recess. 3. Mild bony foraminal narrowing described above. 4. Moderate facet arthropathy L3-L5. 5. Epidural spinal stimulator catheter extends cephalad off the [id number].
== END 2022-05-04 16:02 | disposition home or self-care (01) ==
LOC: RAD 16:03
PROVIDERS: PCP Family Medicine; Visit Provider Nurse Practitioner
DX: M48.54XA Collapsed vertebra, not elsewhere classified, thoracic region, initial encounter for fracture (principal); M48.061 Spinal stenosis, lumbar region without neurogenic claudication; M47.816 Spondylosis without myelopathy or radiculopathy, lumbar region
CPT/HCPCS: 72131

== ENCOUNTER 2023-02-20 08:37 | Emergency (ER) | payer OTHER, SELFPAY ==
[2023-02-20] VITALS (12 sets, daily range): BP systolic 139–177; BP diastolic 79–104; PULSE 66–88; RESP 16–23; TEMP 37.2; O2SAT 89–95; BMI 35.7
--- NOTE | 2023-02-20 08:59 | XRR_ITS ---
PROCEDURE INFORMATION: Exam: XR Chest Exam date and time: 02/20/2023 9:07 AM Age: 77 years old Clinical indication: Shortness of breath; Additional info: SOB TECHNIQUE: Imaging protocol: Radiologic exam of the chest. Views: 1 view. COMPARISON: CT cervical spin wo con* [id number] 01/01/2021 8:57 AM FINDINGS: Tubes, catheters and devices: A line/catheter, presumed to represent a spinal stimulator with multiple tiny electrodes near the terminus, projects over the midline spine extending from below the field of view to the midthoracic spine. Lungs: Unremarkable. No consolidation. Pleural spaces: Unremarkable. No pleural effusion. No pneumothorax. Heart/Mediastinum: Unremarkable. No cardiomegaly. Bones/joints: Mild diffuse osseous demineralization. Questionable tendon anchor over the left humeral head. XR/XR chest 1V portable [id number] IMPRESSION: No acute cardiopulmonary findings.
--- NOTE | 2023-02-20 08:59 | ECG_ITS ---
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 Measurements Intervals [place] Rate: 80 P: 65 WV: 219 QRS: -68 QRSD: 122 T: 44 QT: 428 QTc: 496 Interpretive Statements SINUS RHYTHM WITH FIRST DEGREE AV BLOCK RIGHT BUNDLE BRANCH BLOCK [120+ ms QRS DURATION, UPRIGHT V1, 40+ ms S IN I/aVL/V4/V5/V6] LEFT ANTERIOR FASCICULAR BLOCK [QRS AXIS <= -45, QR IN I, RS IN II] No previous ECG available for comparison Electronically Signed On 02-20-2023 9:29:29 CDT by Aravind Moon M.D. [id number] f
[2023-02-20] MEDS: ipratropium-albuterol 3 mL Neb INHALATION ×2 (09:17→11:05)
[2023-02-20 09:30] LABS: Basophils # 0.1 10^3/uL (0.0-0.1); Basophils % 0.8 %; Eosinophils # 0.3 10^3/uL (0.0-0.8); Eosinophils % 5.8 %; Hematocrit 48.4 % (37-53); Lymphocytes # 1.9 10^3/uL (0.8-4.8); Lymphocytes % 32.3 %; Mean Corpuscular HGB Conc 32.2 g/dL (30-55); Mean Corpuscular Hemoglobin 32.6 pg (27-33); Mean Platelet Volume 9.7 fL (7.4-10.4); Monocytes # 0.6 10^3/uL (0.2-0.9); Neutrophils # 2.99 10^3/uL (1.8-7.7); Neutrophils % 50.8 %; Nucleated Red Blood Cells % 0 %; Platelet Count 217 10^3/cmm (157-399); Red Blood Count 4.79 10^6/uL (3.85-5.65); Red Cell Distribution Width 13.4 % (12.1-15.1); White Blood Count 5.89 10^3/uL (3.29-11.43)
[2023-02-20] MEDS: magnesium sulfate premix 2 GM/50 ML PIGGYBACK IV (09:36)
[2023-02-20] MEDS: predniSONE 20 mg Tablet 60 MG PO (09:36)
[2023-02-20 09:47] LABS: Lactic Sepsis W/Reflex 3.7 mmol/L (0.5-2.2)
[2023-02-20 09:49] LABS: Troponin(5th) Baseline 21 ng/L (0-15)
--- NOTE | 2023-02-20 09:50 | PC.PHAR ---
Addendum entered by Francoise Waller 02/20/23 09:51: pts sts pt is on Eliquis, Atorvastatin, norco and a stool softener Original Note: unable to complete med rec- pt and know the names of medications but unsure of mg and dosage- pt fills at pr
[2023-02-20 09:59] LABS: Alanine Aminotransferase 14 U/L (0-41); Albumin Level 4.2 g/dL (3.5-5.2); Alkaline Phosphatase 105 U/L (40-130); Anion Gap 17.5 (5-19); Aspartate Amino Transferase 17 U/L (0-40); Blood Urea Nitrogen 9 mg/dL (8-23); Calcium 8.8 mg/dL (8.5-10.5); Carbon Dioxide 28 mmol/L (22-29); Chloride 102 mmol/L (98-107); Globulin 2.4 g/dL (1.3-4.6); Glucose 98 mg/dL (65-115); Lipase 23 U/L (13-60); Magnesium 2.1 mg/dL (1.7-2.3); NT Pro B Type Natriuretic Pept 321 pg/mL (0-450); Osmolality Calculated 295 mOsm/kg (285-295); Potassium 4.5 mmol/L (3.5-5.1); Sodium 143 mmol/L (136-145); Total Bilirubin 0.9 mg/dL (0.15-1.2); Total Protein 6.6 g/dL (6.6-8.7)
[2023-02-20 10:40] LABS: Reflex Lactate Order REFLEX LACTIC ORDERD
--- NOTE | 2023-02-20 10:59 | ECG_ITS ---
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1945 Requested By: Maine Brar Order Number: [id number] Reading MD: Jose Chopra Measurements Intervals [place] Rate: 71 P: 65 [place]: 241 QRS: -66 QRSD: 121 T: 33 QT: 448 QTc: 487 Interpretive Statements SINUS RHYTHM WITH FIRST DEGREE AV BLOCK RIGHT BUNDLE BRANCH BLOCK [120+ ms QRS DURATION, UPRIGHT V1, 40+ ms S IN I/aVL/V4/V5/V6] LEFT ANTERIOR FASCICULAR BLOCK [QRS AXIS <= -45, QR IN I, RS IN II] Compared to ECG 02/20/2023 08:51:21 No significant changes Electronically Signed On 02-20-2023 13:12:10 CDT by Jose Chopra [id number]
--- NOTE | 2023-02-20 18:25 | W.ED.SOB ---
HPI - SOB/Dyspnea General: Chief Complaint: Shortness of Breath/Dyspnea Stated Complaint: sob, weakness, asthma Time Seen by Provider: 02/20/23 08:50 History of Present Illness: HPI Narrative: This patient is a 77 year old with a history of asthma. He has been having increased symptoms for a few days - worse today. He denies history COPD, fever. No other infectious symptoms. He denies chest pain, leg swelling. He has been on prednisone before, but not since this time last year. He has nebs at home and they help somewhat. Physical Exam Const: COMMON NORMALS: patient oriented x3, no limitations and alert GENERAL APPEARANCE: cooperative OTHER: moderate distress HENMT: HEAD & SCALP: normal to inspection FACE & SINUS: normal facial exam Eye: GENERAL EYE: appearance normal, both eyes and all related structures Neck/C-Spine: COMMON NORMALS: supple, no meningeal signs and no JVD Chest: COMMONS NORMALS: normal inspection of the chest Resp: AUSCULTATION: wheezes (severe) throughout Cardio: COMMON NORMALS: no JVD, regular rate, regular rhythm and No murmurs present (Cardio) RATE: regular rate RHYTHM: regular rhythm GI: COMMON NORMALS: Normal to inspection, nondistended, normoactive bowel sounds present, Soft to palpation and non-tender INSPECTION: Yes normal to inspection AUSCULTATION: Yes normoactive bowel sounds PALPATION: Yes Soft to palpation Back/Pelvis: COMMON NORMALS: thoracic and lumbar spine normal to inspection Extremity: COMMON NORMALS: normal to inspection Neuro: COMMON NORMALS: patient oriented x3, moves all extremities, no focal motor deficits and no sensory deficits noted SENSORIUM/ORIENTATION: Yes alert MENINGEAL SIGNS: Yes no meningeal signs Psych: COMMON NORMALS: mental status grossly normal, cooperative and normal affect Skin: COMMON NORMALS: no rashes or lesions noted and turgor normal GENERAL SKIN EXAM: no rashes or lesions noted and turgor normal Course Vital Signs: Vital signs: Vital Signs Temperature 99.0 F 02/20/23 08:44 Pulse Rate 88 02/20/23 11:58 Respiratory Rate 20 H 02/20/23 11:05 Blood Pressure 153/92 02/20/23 11:58 Pulse Oximetry 89 L 02/20/23 11:58 Oxygen Delivery Me thod Room Air 02/20/23 11:05 Oxygen Flow Rate 2 02/20/23 10:30 MDM - SOB/Dyspnea Medical Decision Making History of asthma - significant exacerbation. Improved with 2 duoneb treatments, magnesium, prednisone. He wants to go home. Sent with a prednisone pack. Lab Data 02/20/23 08:52 02/20/23 08:52 Labs/Radiology: Radiology Impressions Chest X-Ray 02/20/23 08:59 IMPRESSION: No acute cardiopulmonary findings. Laboratory Results WBC 5.89 10^3/uL (3.29-11.43) 02/20/23 08:52 RBC 4.79 10^6/uL (3.85-5.65) 02/20/23 08:52 Hgb 15.60 g/dL (11.27-16.99) 02/20/23 08:52 Hct 48.4 % (37-53) 02/20/23 08:52 MCV 101.0 fl (82-101) 02/20/23 08:52 MCH 32.6 pg (27-33) 02/20/23 08:52 MCHC 32.2 g/dL (30-55) 02/20/23 08:52 RDW 13.4 % (12.1-15.1) 02/20/23 08:52 Plt Count 217 10^3/cmm (157-399) 02/20/23 08:52 MPV 9.7 fL (7.4-10.4) 02/20/23 08:52 Neut % (Auto) 50.8 % 02/20/23 08:52 Lymph % (Auto) 32.3 % 02/20/23 08:52 [place] % (Auto) 10.0 % 02/20/23 08:52 Eos % (Auto) 5.8 % 02/20/23 08:52 Baso % (Auto) 0.8 % 02/20/23 08:52 Neut # (Auto) 2.99 10^3/uL (1.8-7.7) 02/20/23 08:52 Lymph # (Auto) 1.9 10^3/uL (0.8-4.8) 02/20/23 08:52 [place] # (Auto) 0.6 10^3/uL (0.2-0.9) 02/20/23 08:52 Eos # (Auto) 0.3 10^3/uL (0.0-0.8) 02/20/23 08:52 Baso # (Auto) 0.1 10^3/uL (0.0-0.1) 02/20/23 08:52 Nucleated RBC % (auto) 0 % 02/20/23 08:52 Nucleated RBCs # 0.0 /100WBC 02/20/23 08:52 Sodium 143 mmol/L (136-145) 02/20/23 08:52 Potassium 4.5 mmol/L (3.5-5.1) 02/20/23 08:52 Chloride 102 mmol/L (98-107) 02/20/23 08:52 Carbon Dioxide 28 mmol/L (22-29) 02/20/23 08:52 Anion Gap 17.5 (5-19) 02/20/23 08:52 BUN 9 mg/dL (8-23) 02/20/23 08:52 Creatinine 1.1 mg/dL (0.7-1.2) 02/20/23 08:52 GFR Calculation Not Reportable 02/20/23 08:52 Glucose 98 mg/dL (65-115) 02/20/23 08:52 Calculated Osmolality 295 mOsm/kg (285-295) 02/20/23 08:52 Lactic Acid 3.7 mmol/L (0.5-2.2) H 02/20/23 08:52 Calcium 8.8 mg/dL (8.5-10.5) 02/20/23 08:52 Magnesium 2.1 mg/dL (1.7-2.3) 02/20/23 08:52 Total Bilirubin 0.9 mg/dL (0.15-1.2) 02/20/23 08:52 AST 17 U/L (0-40) 02/20/23 08:52 ALT 14 U/L (0-41) 02/20/23 08:52 Alkaline Phosphatase 105 U/L (40-130) 02/20/23 08:52 Troponin T Baseline 21 ng/L (0-15) H 02/20/23 08:52 Troponin T 120 Minute 18.40 ng/L (0-15) H 02/20/23 10:44 Delta Troponin T -2.60 ABS# (0-10) L 02/20/23 10:44 NT-Pro-B Natriuret Pep 321 pg/mL (0-450) 02/20/23 08:52 Total Protein 6.6 g/dL (6.6-8.7) 02/20/23 08:52 Albumin 4.2 g/dL (3.5-5.2) 02/20/23 08:52 Globulin 2.4 g/dL (1.3-4.6) 02/20/23 08:52 Lipase 23 U/L (13-60) 02/20/23 08:52 Discharge Plan Discharge Patient Disposition: Home Clinical Impression: Asthma with exacerbation Condition: Stable Prescriptions: New prednisone 10 mg tablets,dose pack See Rx Instructions .ROUTE .COMPLEX Qty: 21 0RF Rx Instructions: orally per package directions Discharge Orders: Discharge ED (Routine); Ordered 02/20/23 Ordered By: Maine Wiggins Referrals: Sultana Randle PA [Primary Care Provider] - Discharge Diet: Usual diet Discharge Activity: Increase activity as tolerated Patient Instructions: Asthma - Adult, Opioid Safety, Pain Management Coding Level of Care Code ED Embedded Software Manager for Mary Jane Sanders
== END 2023-02-20 12:00 | disposition home or self-care (01) ==
PROVIDERS: Emergency Provider Emergency Medicine; PCP Physician Assistant
DX: J45.901 Unspecified asthma with (acute) exacerbation (principal)
CPT/HCPCS: 36415; 71045; 80053; 83605; 83690; 83735; 83880; 84484; 85025; 93005; 94640; 96365; 99285; J3475; J7512

== ENCOUNTER 2023-03-07 10:14 | Outpatient (CLI) | payer OTHER, SELFPAY ==
--- NOTE | 2023-03-07 10:22 | USCV_ITS ---
Ap Chavez Age: 77 Gender: M : 1945 Exam Date: 03/07/2023 10:41 Ordering Phys: Sherrie Hu MD Technologist: Fito Scott Exam Location: [facility] [place] Indication: CVA, near syncope Risk Factors: Previous Vascular Surgery: None Right Brachial BP: / Left Brachial BP: / Right Left Velocity (cm/s) Spectral Plaque Velocity (cm/s) Spectral Plaque Syst/Diast Broadening Syst/Diast Broadening 89.30/ 13.20 Prox CCA 59.70 / 10.40 73.90/ 15.40 Mid CCA 54.90 / 11.10 40.80/ 8.50 John Distal CCA 63.20 / 5.60 John 71.00/ 12.80 Prox ICA 52.80 / 11.80 77.90/ 18.70 Mid ICA 66.70 / 16.00 70.00/ 20.70 Distal ICA 74.30 / 20.10 75.90 None None ECA 75.70 0.87 ICA/CCA 1.18 Antegrade Vertebral Antegrade 38.20/ 8.60 cm/s 27.10/ 5.30 cm/s Tri Subclavian Tri 43.90 50.50 CONCLUSIONS Right ICA stenosis <50%. Moderate calcified atheromatous plaque right carotid bulb/ICA. Left ICA stenosis <50%. Moderate calcified atheromatous plaque left carotid bulb/ICA. Normal antegrade Doppler flow noted in the right vertebral artery. Normal antegrade Doppler flow noted in the left vertebral artery. Ross Dupont MD (Electronically Signed) Final Date: 07 March 2023 12:36 S
== END 2023-03-07 10:15 | disposition home or self-care (01) ==
PROVIDERS: PCP Family Medicine; Visit Provider Family Medicine
DX: Z86.73 Personal history of transient ischemic attack (TIA), and cerebral infarction without residual deficits (principal); R55 Syncope and collapse; I65.23 Occlusion and stenosis of bilateral carotid arteries
CPT/HCPCS: 93880

== ENCOUNTER → 2023-03-09 10:25 | Outpatient (BNVA) | payer OTHER, SELFPAY | PROVIDERS: PCP Family Medicine; Referring Provider Family Medicine; Visit Provider Internal Medicine Cardiovascular Disease | DX: R94.31 Abnormal electrocardiogram [ECG] [EKG] (principal); I47.1 Supraventricular tachycardia; I10 Essential (primary) hypertension; E78.5 Hyperlipidemia, unspecified; Z86.73 Personal history of transient ischemic attack (TIA), and cerebral infarction without residual deficits; I82.491 Acute embolism and thrombosis of other specified deep vein of right lower extremity; Z79.01 Long term (current) use of anticoagulants | CPT/HCPCS: 99205 ==

== ENCOUNTER 2023-03-21 13:17 | Outpatient (CLI) | payer OTHER, SELFPAY ==
--- NOTE | 2023-03-21 13:00 | USCV_ITS ---
Ap Chavez Age: 77 Gender: M : 1945 Exam Date: 03/21/2023 13:58 Ordering Phys: Dax Dill MD ([email or web address]) Technologist: Daisy Tracey Exam Location: [facility] [place] Indication: tia, abnormal EKG, TURK BP: 140 / 86 HR: 51 Rhythm: Sinus Technical Quality: Adequate MEASUREMENTS (Male / Female) Normal Values 2D ECHO LV Diastolic Diameter PLAX 5.0 cm 4.2 - 5.9 / 3.9 - 5.3 cm LV Systolic Diameter PLAX 2.0 cm IVS Diastolic Thickness 1.2 cm 0.6 - 1.0 / 0.6 - 0.9 cm IVS Systolic Thickness 1.6 cm LVPW Diastolic Thickness 0.9 cm 0.6 - 1.0 / 0.6 - 0.9 cm LVPW Systolic Thickness 1.7 cm LVOT Diameter 2.0 cm LV Ejection Fraction 2D Teich 88.6 % LV Ejection Fraction MOD 2C 73.3 % LV Ejection Fraction 2C AL 77.3 % LA Diameter 3.1 cm LA Width 3.6 cm LA Height 4.1 cm RA Width 3.1 cm RA Height 5.7 cm Aorta at Sinotubular Diameter 3.4 cm IVC Diameter 1.9 cm M-MODE Aortic Annulus Diameter 3.8 cm LA Ao Ratio MM 0.9 MV E Point Septal Separation 0.4 cm DOPPLER AV Peak Velocity 101.0 cm/s LVOT Peak Velocity 80.0 cm/s AV Area Cont Eq vti 2.9 cm squared AV Area Cont Eq pk 2.5 cm squared MV Peak Velocity 85.0 cm/s MV Area PHT 3.3 cm squared Mitral E to A Ratio 1.1 MV E' Velocity 45.5 cm/s Mitral E to MV E' Ratio 9.5 Mitral E to LV E' Lateral Ratio 8.8 Mitral E to LV E' Septal Ratio 10.4 TR Peak Velocity 79.3 cm/s TR Peak Gradient 2.5 mmHg Right Atrial Pressure 5.0 mmHg Pulmonary Artery Systolic Pressu 7.5 mmHg PV Peak Velocity 89.0 cm/s RV Acceleration Time 0.1 s RV Ejection Time 0.4 s RV AcT/ET 0.4 FINDINGS Left Ventricle Normal left ventricular size and systolic function, EF 69 %. No regional wall motion abnormalities. Right Ventricle The right ventricle is normal in size and function. Right Atrium The right atrium is normal in size. Left Atrium The left atrium is normal in size. Mitral Valve Mild mitral annular calcification. Aortic Valve No gross abnormalities noted Tricuspid Valve No gross abnormalities noted Pulmonic Valve Pulmonic valve not well visualized. Pericardium Small echo-free space anteriorly, suggesting pericardial effusion Aorta Normal aortic annulus size. IVC Normal inferior vena cava. CONCLUSIONS Normal left ventricular size and systolic function, EF 69 %. No regional wall motion abnormalities. The right ventricle is normal in size and function. Mild mitral annular calcification. Normal cardiac chamber sizes. No significant stenotic or regurgitant lesions Features of small pericardial effusion Compared to the study from 01-29, the pericardial effusion appears to be new. Dr Dax Dill MD FACC (Electronically Signed) Final Date: 24 March 2023 09:05 S
== END 2023-03-21 13:18 | disposition home or self-care (01) ==
PROVIDERS: PCP Family Medicine; Visit Provider Internal Medicine Cardiovascular Disease
DX: R06.09 Other forms of dyspnea (principal); I34.81 Nonrheumatic mitral (valve) annulus calcification
CPT/HCPCS: 93306; 99205

== ENCOUNTER 2023-05-06 17:22 | Emergency (ER) | payer OTHER, SELFPAY ==
[2023-05-06 17:36] VITALS: BP 168/80; PULSE 61; RESP 18; TEMP 36.6; O2SAT 95; BMI 34.9
--- NOTE | 2023-05-06 17:44 | XRR_ITS ---
PROCEDURE INFORMATION: Exam: XR Abdomen Exam date and time: 05/06/2023 5:46 PM Age: 78 years old Clinical indication: Abdominal pain; Additional info: Constipation TECHNIQUE: Imaging protocol: Radiologic exam of the abdomen. Views: Frontal supine view of the abdomen. 1 View. COMPARISON: CR XR chest 1V portable [id number] 02/20/2023 9:07 AM FINDINGS: Tubes, catheters and devices: Left-sided pain management/neurostimulator device in place. Gastrointestinal tract: Mild to moderate retained feces. Bones/joints: Unremarkable. XR/XR abdomen 1V* [id number] IMPRESSION: 1. Left-sided pain management/neurostimulator device in place. 2. Mild to moderate retained feces.
[2023-05-06 18:15] VITALS: BP 195/93; PULSE 64; O2SAT 94
--- NOTE | 2023-05-06 18:18 | ED_ITS ---
HPI - Abdominal Pain General: Chief Complaint: Abdominal Pain Stated Complaint: abd pain Time Seen by Provider: 05/06/23 17:45 History of Present Illness: Patient presents to the ER and states he has not had a good bowel movement in approximately 9 days. Patient was at the [facility] yesterday and they gave him milk of mag. He is taken 3 doses since then and had a's very small soft bowel movement this morning but nothing else patient is having increased abdominal pain with vomiting x1 today. Review of Systems General: Reports: 10 or more systems reviewed and unremarkable except in HPI and below PFSH ED PFSH: Medical History History of atrial flutter History of deep venous thrombosis (DVT) of distal vein of right lower extremity Urinary retention Surgical History History of radiofrequency ablation procedure for cardiac arrhythmia Family History Other CAD (coronary artery disease) Diabetes Stroke Social History Alcohol intake: current Alcohol intake frequency: 0-2 Drinks per Day Substance/Drug Use: never Marital status: Current occupational status: disabled Physical Exam Const: COMMON NORMALS: no acute distress, average body habitus, patient oriented x3, no limitations, healthy appearing, alert and well nourished HENMT: COMMON NORMALS: normocephalic, atraumatic, hearing grossly normal bilaterally, external ears normal, Normal external nose present, moist oral mucous membranes and oropharynx normal HEAD & SCALP: normocephalic and atraumatic NOSE: Normal external nose present EXTERNAL EAR: Yes external ears normal Neck/C-Spine: COMMON NORMALS: no JVD Chest: COMMONS NORMALS: normal inspection of the chest and normal palpation of entire chest wall Resp: COMMON NORMALS: normal respiratory effort, No retractions, No use of accessory muscles and clear to auscultation bilaterally AUSCULTATION: clear to auscultation bilaterally Cardio: COMMON NORMALS: no JVD, regular rate, regular rhythm, S1 normal heart sound present, S2 normal heart sound present, No gallops present (Cardio), No clicks present (Cardio), No murmurs present (Cardio) and No rub (Cardio) RATE: regular rate RHYTHM: regular rhythm HEART SOUNDS: S1 normal heart sound present and S2 normal heart sound present GI: COMMON NORMALS: Normal to inspection, nondistended, normoactive bowel sounds present, Soft to palpation, No hepatosplenomegaly present and no masses; negative for non-tender (Mildly tender to palpate left lower quadrant) PALPATION: Yes Soft to palpation and Yes No hepatosplenomegaly present Neuro: COMMON NORMALS: patient oriented x3 SENSORIUM/ORIENTATION: Yes alert Course Vital Signs: Vital signs: Vital Signs Temperature 98 F 05/06/23 17:36 Pulse Rate 65 05/06/23 19:04 Respiratory Rate 18 05/06/23 17:36 Blood Pressure 169/86 05/06/23 19:04 Pulse Oximetry 94 05/06/23 19:04 Oxygen Delivery Me thod Room Air 05/06/23 18:30 MDM - Abdominal Pain Medical Decision Making Patient presents with abdominal pain secondary to constipation. X-ray was obtained which showed mild to moderate retained feces. Patient was given 60 mg Toradol IM as well as 45 mg lactulose, 4 mg Zofran and 200 mg Colace. Patient tolerated these well. Patient will be discharged home on lactulose. Patient is to follow-up with his PCP in 7 to 10 days or sooner as needed. Differential Diagnosis Likely abdominal pain and constipation; Unlikely acute appendicitis, calculus of kidney, diverticulitis, endometriosis, gastroenteritis, pancreatitis or small bowel obstruction Medical Records I reviewed the patient's medical records. Lab Data I reviewed the patient's lab results. Labs/Radiology: Radiology Impressions Abdomen X-Ray 05/06/23 17:44 IMPRESSION: 1. Left-sided pain management/neurostimulator device in place. 2. Mild to moderate retained feces. All radiology interpretation(s) finalized by discharge Discharge Plan Discharge Patient Disposition: Home Clinical Impression: Constipation Qualifiers: Constipation type: unspecified constipation type Qualified Code(s): K59.00 - Constipation, unspecified Condition: Stable Prescriptions: New lactulose 20 gram/30 mL solution 40 g PO TID PRN (Reason: constipation) Qty: 1200 0RF No Action acetaminophen [Tylenol] 325 mg capsule 325 mg PO Q6H PRN artifi.tears(hypromellose)(PF) 0.3 % drops 2 drp ophthalmic (eye) Q4H PRN nystatin [Nystop] 100,000 unit/gram powder 1 applic topical BID ondansetron HCl [Zofran] 4 mg tablet 4 mg PO Q4H PRN (DME) randolph gómez See Rx Instructions .Route .MEDSUPPLY Qty: 1 0RF Rx Instructions: As directed cholecalciferol (vitamin D3) 50 mcg (2,000 unit) capsule 50 mcg PO DAILY Laxative (sennosides) 25 mg tablet 25 mg PO DAILY albuterol sulfate 5 mg/mL solution for nebulization 2.5 mg inhalation Q4H PRN atorvastatin 40 mg Tablet 80 mg PO Q24H Qty: 60 0RF Eliquis 5 mg tablet 5 mg PO BID Qty: 60 0RF prednisone 10 mg tablets,dose pack See Rx Instructions .ROUTE .COMPLEX Qty: 21 0RF Rx Instructions: orally per package directions Discharge Orders: Discharge ED (Routine); Ordered 05/06/23 Ordered By: Von Tabares Referrals: Sherrie Hu MD [Primary Care Provider] - 4-7 days Patient Instructions: Constipation - Adult Activity Restrictions/Additional Instructions: Please take all medicine as directed. Please try to increase your water intake as well as your fiber content. Please follow-up with your family practice physician on an as-needed basis Coding Level of Care Code ED Senior Investment Analyst for Mary Jane Sanders
[2023-05-06] MEDS: ketorolac 60 mg/2 mL INJ IM (18:24)
[2023-05-06] MEDS: docusate sodium 100 mg Capsule 200 MG PO (18:26)
[2023-05-06] MEDS: ondansetron 4 MG Tablet PO (18:26)
[2023-05-06] MEDS: lactulose oral liq 20 gm/30 mL UDC 45 GM PO (18:28)
[2023-05-06 18:30] VITALS: BP 181/104; PULSE 60; O2SAT 94
[2023-05-06 19:04] VITALS: BP 169/86; PULSE 65; O2SAT 94
[2023-05-06 20:04] VITALS: BP 132/81; PULSE 92; O2SAT 93
== END 2023-05-06 20:06 | disposition home or self-care (01) ==
PROVIDERS: Emergency Provider Emergency Medicine; PCP Family Medicine
DX: K59.00 Constipation, unspecified (principal); Z79.01 Long term (current) use of anticoagulants
CPT/HCPCS: 74018; 96372; 99284; J1885; Q0162

== ENCOUNTER 2024-06-11 10:18 | Emergency (ER) | payer OTHER, SELFPAY ==
[2024-06-11 10:28] VITALS: BP 144/76; PULSE 49; RESP 18; TEMP 36.4; O2SAT 97; BMI 35.7
--- NOTE | 2024-06-11 11:05 | XRR_ITS ---
PROCEDURE INFORMATION: Exam: XR Chest Exam date and time: 06/11/2024 11:09 AM Age: 79 years old Clinical indication: Shortness of breath TECHNIQUE: Imaging protocol: Radiologic exam of the chest. Views: 1 view. COMPARISON: CR XR chest 1V portable [id number] 02/20/2023 9:07 AM FINDINGS: Tubes, catheters and devices: Thoracic spinal stimulator in place. Lungs: Obscuration of the right diaphragmatic contour raising the possibility of right basilar atelectasis and/or airspace disease although the specificity of the finding is limited in this context. No definite left pulmonary abnormality. Pleural spaces: No discrete pleural effusion. Heart/Mediastinum: Cardiomediastinal contours accentuated by technique. Superior mediastinal widening with low attenuation suggesting possible mediastinal lipomatosis although this finding is new compared with the prior exam. Bones/joints: No significant pathology. Soft tissues: Obscuration of the lower chest by large abdominal soft tissues. XR/XR chest 1V portable [id number] IMPRESSION: Indeterminate findings as described above including possible right basilar pulmonary pathology and increased superior mediastinum. PA and lateral projections recommended for further assessment if clinically warranted if plain films remain indeterminate CT could be performed for more detailed assessment.
[2024-06-11] MEDS: doxycycline 100 MG in sodium chloride 0.9% (plus) 100 ML IV (11:27)
[2024-06-11] MEDS: methylPREDNISolone sod succ 125 mg/2 mL INJ IVP (11:27)
[2024-06-11 11:32] VITALS: BP 147/72; PULSE 55; O2SAT 95
[2024-06-11] MEDS: ipratropium-albuterol 3 mL Neb INHALATION (11:49)
[2024-06-11] MEDS: albuterol 2.5 mg/3 mL Neb INHALATION (11:49)
--- NOTE | 2024-06-11 11:49 | ED_ITS ---
HPI - SOB/Dyspnea General: Chief Complaint: Shortness of Breath/Dyspnea Stated Complaint: [facility] Time Seen by Provider: 06/11/24 11:04 History of Present Illness: HPI Narrative: 79-year-old man with a history of asthma Who presents emergency [facility] He reports usually he will get an antibiotic and some steroid and they will send him home. Today they sent him to the emergency room instead. No fevers. No chest pain. No oxygen requirements on presentation. No altered mental status. No lower extremity swelling. No abdominal pain. No nausea or vomiting. He says this is just his typical asthma exacerbation Related Data Home Medications Medication Instructions Recorded Confirmed albuterol sulfate 5 mg/mL(0.5 %) 2.5 mg inhalation Q4H PRN 03/09/23 06/11/24 solution for nebulization Shortness Of Breath Or Wheezing cholecalciferol (vitamin D3) 50 50 mcg PO DAILY 03/09/23 06/11/24 mcg (2,000 unit) capsule sennosides 25 mg tablet (Laxative 25 mg PO DAILY 03/09/23 06/11/24 (sennosides)) albuterol sulfate 90 mcg/actuation 2 inh inhalation Q4H 06/11/24 06/11/24 breath activated powder inhaler,sensor atorvastatin 80 mg tablet 80 mg PO QPM 06/11/24 06/11/24 fluticasone 100 mcg-salmeterol 50 1 inh inhalation BID 06/11/24 06/11/24 mcg/dose blistr powdr for inhalation (Advair Diskus) gabapentin 100 mg capsule 100 mg PO TID 06/11/24 06/11/24 Previous Rx's Medication Instructions Recorded apixaban 5 mg tablet (Eliquis) 5 mg PO BID #60 tabs 08/06/20 randolph gómez #1 ea 01/08/21 doxycycline monohydrate 100 mg 100 mg PO BID 10 days #20 caps 06/11/24 capsule prednisone 20 mg tablet 60 mg (3 x 20 mg) PO DAILY #20 tabs 06/11/24 Allergies Allergy/AdvReac Type Severity Reaction Status Date / Time No Known Allergies Allergy Verified 03/18/23 15:32 Review of Systems 2 Narrative: Constitutional symptoms: Negative except as documented in HPI. Skin symptoms: Negative except as documented in HPI. Eye symptoms: Negative except as documented in HPI. ENMT symptoms: Negative except as documented in HPI. Respiratory symptoms: Negative except as documented in HPI. Cardiovascular symptoms: Negative except as documented in HPI. Gastrointestinal symptoms: Negative except as documented in HPI. Genitourinary symptoms: Negative except as documented in HPI. Musculoskeletal symptoms: Negative except as documented in HPI. Neurologic symptoms: Negative except as documented in HPI. Psychiatric symptoms: Negative except as documented in HPI. Endocrine symptoms: Negative except as documented in HPI. PFSH ED PFSH: Medical History Urinary retention History of deep venous thrombosis (DVT) of distal vein of right lower extremity History of atrial flutter Surgical History History of radiofrequency ablation procedure for cardiac arrhythmia Family History Other CAD (coronary artery disease) Diabetes Stroke Social History Alcohol intake: current Alcohol intake frequency: 0-2 Drinks per Day Substance/Drug Use: never Marital status: Current occupational status: disabled Physical Exam Narrative: EXAM NARRATIVE: General: Alert, no acute distress. Skin: Warm, dry. Head: Normocephalic, atraumatic. Neck: Supple, trachea midline. Eye: Extraocular movements are intact. Ears, nose, mouth and throat: Oral mucosa moist. Cardiovascular: Regular rate and rhythm, Normal peripheral perfusion. Respiratory: coarse, scattered wheeze, mild increased wob. tachypnea, breath sounds are equal, Symmetrical chest wall expansion. Gastrointestinal: Soft, Nontender, Non distended, Normal bowel sounds. Musculoskeletal: Normal ROM, no deformity. Neurological: Alert and oriented to person, place, time, and situation, No focal neurological deficit observed. Psychiatric: Cooperative, appropriate mood & affect. Course Vital Signs: Vital signs: Vital Signs Temperature 97.6 F 06/11/24 10:28 Pulse Rate 50 L 06/11/24 12:04 Respiratory Rate 20 H 06/11/24 11:52 Blood Pressure 147/72 06/11/24 11:32 Pulse Oximetry 95 06/11/24 11:52 Oxygen Delivery Me thod Room Air 06/11/24 11:52 MDM - SOB/Dyspnea Medical Decision Making Differential diagnosis for patient with shortness of breath includes but is not limited to and based on the above HPI, review of systems and physical exam: Pneumonia. Bronchitis. Asthma or COPD with acute exacerbation. Acute coronary syndrome / CO. Pulmonary embolism. Anxiety. Congestive heart failure. Viral infections including influenza and Covid-19. Atrial fibrillation. Anxiety. Pleural effusion. Pneumothorax. Orders placed to evaluate differential diagnosis based on the above differential, HPI and physical exam I reviewed the patient's medical record. Chest x-ray: No acute process. No infiltrate. No pneumothorax. This was reviewed and interpreted by myself the emergency room physician. I also reviewed the radiology report. Reexamination: Patient remained stable. No altered mental status. No focal motor deficits. Still with some mild wheeze but no increased work of breathing. Repeat chest x-ray and CT were done to evaluate possible abnormal findings. These appear normal and this was likely a shadow of the patient's belly. Assessment and plan: Asthma exacerbation ?IV doxycycline, IV Solu-Medrol and updrafts in the emergency room. - Discharged home - Discussed plan with patient. Answered any questions. - Evaluation and treatment of this problem were appropriate in the emergency setting. Lab Data Labs/Radiology: Radiology Impressions Chest X-Ray 06/11/24 12:08 IMPRESSION: No acute pathology or significant change compared with 02/20/2023 given technique. All radiology interpretation(s) finalized by discharge Discharge Plan Discharge Patient Disposition: Home Clinical Impression: Asthma with exacerbation Condition: Stable Prescriptions: New prednisone 20 mg tablet 60 mg PO DAILY Qty: 20 0RF Rx Instructions: 3 tabs (60 mg) x 3 days. 2 tabs (40 mg) x 3 days. 1 tab (20 mg) x 3 days. 1/2 tab (10 mg) x 4 days doxycycline monohydrate 100 mg capsule 100 mg PO BID 10 Days Qty: 20 0RF No Action (DME) randolph gómez See Rx Instructions .Route .MEDSUPPLY Qty: 1 0RF Rx Instructions: As directed cholecalciferol (vitamin D3) 50 mcg (2,000 unit) capsule 50 mcg PO DAILY Laxative (sennosides) 25 mg tablet 25 mg PO DAILY albuterol sulfate 5 mg/mL solution for nebulization 2.5 mg inhalation Q4H PRN (Reason: Shortness Of Breath Or Wheezing) Eliquis 5 mg tablet 5 mg PO BID Qty: 60 0RF atorvastatin 80 mg Tablet 80 mg PO QPM gabapentin 100 mg Capsule 100 mg PO TID fluticasone propion-salmeterol [Advair Diskus] 100-50 mcg/dose Blister With Device 1 inh INHALATION BID albuterol sulfate 90 mcg/actuation Aero Powdr Breath Act W/Sensor 2 inh INHALATION Q4H Discharge Orders: Discharge ED (Routine); Ordered 06/11/24 Ordered By: Shraddha Sam Referrals: Sherrie Hu MD [Primary Care Provider] - Patient Instructions: Asthma (ED), Opioid Safety, Pain Management Activity Restrictions/Additional Instructions: Thank you for choosing [facility] for your healthcare needs today. Please realize this is an emergency room and that we are providing you with a medical screening exam and this may not be complete and all inclusive of all the testing and or work up that you may need to determine your ailment or severity of your illness. You have been screened and evaluated and felt safe for discharge. Health conditions do change or evolve sometimes and as such it is important that you follow up with your Primary Doctor to be re checked, 3-5 days is a general good time frame for follow up. You are always welcome to return to the ED for re assessment if your symptoms are worsening or you have new concerns Coding Level of Care Code ED Roller Bearing Inspector for Mary Jane Sanders
[2024-06-11 11:52] VITALS: PULSE 48; RESP 20; O2SAT 95
[2024-06-11 12:04] VITALS: PULSE 50
--- NOTE | 2024-06-11 12:08 | XRR_ITS ---
PROCEDURE INFORMATION: Exam: XR Chest Exam date and time: 06/11/2024 12:16 PM Age: 79 years old Clinical indication: Abnormal findings; Abnormal radiologic exam of lung or chest; Additional info: Abn portable TECHNIQUE: Imaging protocol: Radiologic exam of the chest. Views: 2 views. COMPARISON: CR XR chest 1V portable [id number] 06/11/2024 11:09 AM FINDINGS: Tubes, catheters and devices: Thoracic spinal stimulator in place. Lungs: Given technical limitations of the exam including rotation and incomplete pulmonary expansion, no definite acute pathology or significant change compared with 02/20/2023. Pleural spaces: No pleural effusion or pneumothorax. Heart/Mediastinum: Cardiomediastinal contours accentuated by low lung volumes and AP technique. Diaphragm: Mildly elevated right hemidiaphragm. Bones/joints: Prior left shoulder surgery. XR/XR chest 2V* [id number] IMPRESSION: No acute pathology or significant change compared with 02/20/2023 given technique.
--- NOTE | 2024-06-11 12:26 | CT_ITS ---
WS: [id number] CT chest wo con [id number] HISTORY: abnormal chest xray TECHNIQUE: Axial imaging performed through the thorax. Coronal and sagittal reformats are submitted. All CT scans at [facility] use at least one of these dose optimization techniques: automated exposure control; mA and/or kV adjustment per patient size (includes targeted exams where dose is mat ched to clinical indication); or iterative reconstruction. CONTRAST: None DLP: 649.71 mGy.cm COMPARISON: Radiograph 06/11/2024 Lungs and central airway: Several noncalcified, subcentimeter pulmonary nodules at the lung bases. Th e largest is 4 mm at the LEFT lung base. No pneumonia. No mass. No endobronchial lesions. Pleura: Normal. No pleural effusion. Heart and pericardium: Normal size heart with no pericardial effusion. Mediastinum and mercedes: No mediastinum or hilar adenopathy. Vessels: Dilated pulmonary artery to 3.8 cm. Moderate atherosclerotic plaque thoracic aorta. Very hea vy dense coronary artery calcification. Chest wall and lower neck: No soft tissue masses. Upper abdomen: Stones within the gallbladder. Some of these stones contain fat. Heavy calcification i n the spleen. No adrenal mass. Mild pancreatic atrophy. Splenic granulomata. Osseous structures: Dorsal column stimulator in the midthoracic region. No destructive bone lesions. CT/CT chest wo con [id number] IMPRESSION: 1. Small bilateral lower lobe pulmonary nodules. The largest is 4 mm. Recommen d follow-up chest CT in 6 months. 2. Cholelithiasis without evidence for acute cholecystitis. 3. Dilated pulmonary artery. Consider pulmonary hypertension. 4. Heavy dense calcification in the coronary arteries.
[2024-06-11 13:33] VITALS: PULSE 76; O2SAT 96
== END 2024-06-11 13:35 | disposition home or self-care (01) ==
PROVIDERS: Emergency Provider Emergency Medicine; PCP Family Medicine
DX: J45.901 Unspecified asthma with (acute) exacerbation (principal); Z79.01 Long term (current) use of anticoagulants
CPT/HCPCS: 71045; 71046; 71250; 94640; 96374; 96375; 99285; J2919; J3490; J7613

== ENCOUNTER 2024-08-27 09:39 | Emergency (ER) | payer OTHER, SELFPAY ==
[2024-08-27 09:48] VITALS: BP 146/71; PULSE 53; RESP 17; O2SAT 96; BMI 35.7
[2024-08-27 09:57] VITALS: PULSE 49; TEMP 36.6
--- NOTE | 2024-08-27 09:58 | W.ED.EXTPRO ---
HPI - Extremity Problem General: Chief complaint: Extremity Problem,Nontraumatic Stated complaint: sent from [place], possible b/c Time Seen by Provider: 08/27/24 09:42 Source: patient and family ( came along with him ) Mode of arrival: wheelchair Limitations: no limitations History of Present Illness: 79-year-old male presents to the ER for right leg pain and swelling. Patient was at the [place] office today regarding swelling in his right leg and was sent to the ER for an ultrasound. Patient states he has been having on and off random pains in different areas the leg for 3 weeks now. States swelling present over the past week although significant other reports longer. Patient states he had a stroke 4 years ago and is left with weakness on his right side including arm and leg. Patient takes Eliquis twice a day consistently and has been compliant with this. Patient denies chest pain, palpitations, shortness of breath, abdominal pain, vision changes, headaches. He currently is not having any pain in the leg. States he only wants an ultrasound and to go home. MD Complaint: extremity pain (R. leg) and extremity swelling (R. leg) Onset (ago): week(s) Pain Consistency: constant (swelling) and intermittent (pain) Location: right and lower extremity (R. below the knee and calf ) Severity scale (1-10): 8 Quality: aching and constant Radiation: none Relieving factors: nothing Exacerbating factors: palpation (Tender to palpation ) Associated symptoms: Reports no associated symptoms; Deny chest pain, fever(s) or rash Related Data Home Medications ?Medication ?Instructions ?Recorded ?Confirmed albuterol sulfate 5 mg/mL(0.5 %) 2.5 mg inhalation Q4H PRN 03/09/23 08/27/24 solution for nebulization Shortness Of Breath Or Wheezing cholecalciferol (vitamin D3) 50 50 mcg PO DAILY 03/09/23 08/27/24 mcg (2,000 unit) capsule sennosides 25 mg tablet (Laxative 25 mg PO DAILY 03/09/23 08/27/24 (sennosides)) albuterol sulfate 90 mcg/actuation 2 inh inhalation Q4H 06/11/24 08/27/24 breath activated powder inhaler,sensor atorvastatin 80 mg tablet 80 mg PO QPM 12/23/24 03/10/25 fluticasone 100 mcg-salmeterol 50 1 inh inhalation BID 06/11/24 08/27/24 mcg/dose blistr powdr for inhalation (Advair Diskus) gabapentin 100 mg capsule 100 mg PO TID 06/11/24 08/27/24 Previous Rx's ?Medication ?Instructions ?Recorded apixaban 5 mg tablet (Eliquis) 5 mg PO BID #60 tabs 08/06/20 Allergies Allergy/AdvReac Type Severity Reaction Status Date / Time No Known Allergies Allergy Verified 03/18/23 15:32 Review of Systems Const: Denies: fever(s), chills or body aches Eyes: Denies: change in vision Card: Denies: chest pain or palpitations Resp: Denies: dyspnea GI: Denies: abdominal pain, nausea or vomiting Musc: Reports: extremity pain (R. lower leg ) and extremity swelling (R. lower leg ); Denies: joint pain, joint swelling, joint redness or joint warmth Skin/Breast: Denies: rash, pruritus or erythema Neuro: Reports: other (chronic R sided deficits from previous CVA); Denies: headache(s) PFSH ED PFSH: Medical History Urinary retention History of deep venous thrombosis (DVT) of distal vein of right lower extremity History of atrial flutter Surgical History History of radiofrequency ablation procedure for cardiac arrhythmia Family History Other CAD (coronary artery disease) Diabetes Stroke Social History Alcohol intake: current Alcohol intake frequency: 0-2 Drinks per Day Substance/Drug Use: never Marital status: Current occupational status: disabled Physical Exam Const: COMMON NORMALS: no acute distress, average body habitus, patient oriented x3, no limitations, alert and well nourished GENERAL APPEARANCE: cooperative ORIENTATION/CONSCIOUSNESS: Yes awake, Yes oriented to person, Yes oriented to place and Yes oriented to time Resp: COMMON NORMALS: normal respiratory effort and clear to auscultation bilaterally AUSCULTATION: clear to auscultation bilaterally Cardio: COMMON NORMALS: regular rate and regular rhythm RATE: regular rate RHYTHM: regular rhythm Extremity: COMMON NORMALS: capillary refill normal GENERAL: Yes calf tenderness (R. leg ) RIGHT LOWER EXTREMITY: Yes lower leg (pt did not complain of pain with palpation) Right lower leg: Yes inspection (edema to R LE when compared to L), Yes palpation, Yes neurovascular exam (distal DP/PT pulses intact, normal cap refill) and Yes other (chronic motor deficits to R LE from previous CVA) Neuro: COMMON NORMALS: patient oriented x3 SENSORIUM/ORIENTATION: Yes alert, Yes oriented to person, Yes oriented to place and Yes oriented to time Skin: COMMON NORMALS: no rashes or lesions noted GENERAL SKIN EXAM: no rashes or lesions noted and no erythema Course Vital Signs: Vital signs: Vital Signs Temperature 97.8 F 08/27/24 09:57 Pulse Rate 49 L 08/27/24 09:57 Respiratory Rate 17 08/27/24 09:48 Blood Pressure 146/71 08/27/24 09:48 Pulse Oximetry 96 08/27/24 09:48 MDM - Extremity (Nontraumatic) Medical Decision Making Patient's ultrasound was negative for DVT. [facility]. Patient does not want any further evaluation from the emergency department and wants to go home. States he is only here for an ultrasound. XR interpretation done by ED provider, pending radiology final review (per US tech-negative for DVT) Discharge Plan Discharge Patient Disposition: Home Clinical Impression: Pain and swelling of right lower extremity Condition: Stable Prescriptions: No Action cholecalciferol (vitamin D3) 50 mcg (2,000 unit) capsule 50 mcg PO DAILY Laxative (sennosides) 25 mg tablet 25 mg PO DAILY albuterol sulfate 5 mg/mL solution for nebulization 2.5 mg inhalation Q4H PRN (Reason: Shortness Of Breath Or Wheezing) Eliquis 5 mg tablet 5 mg PO BID Qty: 60 0RF atorvastatin 80 mg Tablet 80 mg PO QPM gabapentin 100 mg Capsule 100 mg PO TID fluticasone propion-salmeterol [Advair Diskus] 100-50 mcg/dose Blister With Device 1 inh INHALATION BID albuterol sulfate 90 mcg/actuation Aero Powdr Breath Act W/Sensor 2 inh INHALATION Q4H Discharge Orders: Discharge ED (Routine); Ordered 08/27/24 Ordered By: Dana Hernandez Referrals: Sherrie Hu MD [Primary Care Provider] - Activity Restrictions/Additional Instructions: As we discussed, your ultrasound was negative for a DVT/blood clot. As we discussed, [facility]. Print Language: Japanese Coding Level of Care Code ED Lab Animal Technician for Mary Jane Sanders
--- NOTE | 2024-08-27 10:00 | USCV_ITS ---
Ap Chavez Age: 79 Gender: M : 1945 Exam Date: 08/27/2024 10:34 Ordering Phys: Dana Hernandez Technologist: TRACEY Exam Location: [facility] [place] Indication: LE Pain and swelling. No pain today HISTORY: Lower extremity pain. Lower extremity swelling. PROCEDURES: Venous duplex imaging was performed in only the right lower extremity. The following venous structures were evaluated: common femoral vein, profunda vein, proximal portion of the greater saphenous vein, superficial femoral vein, and the popliteal vein. In addition, the posterior tibial and peroneal trunk were evaluated. Serial compression, augmentation maneuvers, and spectral Doppler flow evaluation were performed. FINDINGS: No evidence of DVT seen in any vessel visualized at this time. CONCLUSIONS No evidence of right lower extremity DVT. Ross Dupont MD (Electronically Signed) Final Date: 27 August 2024 12:32 S
--- NOTE | 2024-08-27 15:09 | PC.PHAR ---
[facility] is [facility]
== END 2024-08-27 11:21 | disposition home or self-care (01) ==
PROVIDERS: Emergency Provider Physician Assistant; PCP Family Medicine
DX: R60.0 Localized edema (principal); Z79.01 Long term (current) use of anticoagulants; M79.604 Pain in right leg
CPT/HCPCS: 93971; 99284

== ENCOUNTER 2024-10-10 13:54 | Outpatient (CLI) | payer OTHER, SELFPAY ==
--- NOTE | 2024-10-10 14:00 | USR_ITS ---
PROCEDURE INFORMATION: Exam: US Duplex Bilateral Lower Extremity Arteries Exam date and time: 10/10/2024 2:29 PM Age: 79 years old Clinical indication: Pain; Leg, lower; Right; Additional info: R lower extremity pain TECHNIQUE: Imaging protocol: Real-time ultrasound scan of the arteries of the bilateral lower extremities with 2-D bal scale, color Doppler flow and spectral waveform analysis. Images documented and saved. COMPARISON: US renal BI* [id number] 08/01/2020 4:00 PM FINDINGS: Right common femoral artery: No occlusion or significant stenosis. Normal waveform. Right superficial femoral artery: No occlusion or significant stenosis. Normal waveform. Right popliteal artery: No occlusion or significant stenosis. Normal waveform. Right calf/foot arteries: No occlusion or significant stenosis in the visualized arteries. Normal waveforms. Dorsalis pedis artery is patent. Left common femoral artery: No occlusion or significant stenosis. Normal waveform. Left superficial femoral artery: No occlusion or significant stenosis. Normal waveform. Left popliteal artery: No occlusion or significant stenosis. Normal waveform. Left calf/foot arteries: No occlusion or significant stenosis in the visualized arteries. Normal waveforms. Dorsalis pedis artery is patent. US/[place] [id number] IMPRESSION: No stenosis or occlusion.
== END 2024-10-10 13:55 | disposition home or self-care (01) ==
PROVIDERS: PCP Family Medicine; Visit Provider Family Medicine
DX: I73.9 Peripheral vascular disease, unspecified (principal)
CPT/HCPCS: 93925

== ENCOUNTER 2024-12-28 12:35 | Outpatient (CLI) | payer OTHER, SELFPAY ==
--- NOTE | 2024-12-28 12:41 | CTR_ITS ---
PROCEDURE INFORMATION: Exam: CT Thoracic Spine Without Contrast Exam date and time: 12/28/2024 12:52 PM Age: 79 years old Clinical indication: Pain in thoracic spine; Prior surgery; Surgery date: 6+ months; Surgery type: Spinal stim; Tractor accident 6-7 years ago, HX of compression FX, reassess; Additional info: Compression fx/pain TECHNIQUE: Imaging protocol: Computed tomography of the thoracic spine without contrast. Radiation optimization: All CT scans at this facility use at least one of these dose optimization techniques: automated exposure control; mA and/or kV adjustment per patient size (includes targeted exams where dose is matched to clinical indication); or iterative reconstruction. COMPARISON: CT chest wo con [id number] 06/11/2024 1:03 PM RADIATION DOSE METRICS: Total DLP (mGy-cm): 1062.51 FINDINGS: Tubes, catheters and devices: Spinal stimulator device is noted. Bones/joints: Chronic compression deformity with anterior wedging of the T12 vertebral body. The remaining thoracic vertebral body heights are maintained. Spondylosis of the lower levels. No high-grade bony neural foraminal narrowing or spinal canal narrowing. Soft tissues: Unremarkable. CT/CT thoracic spin wo con* [id number] IMPRESSION: As above.
== END 2024-12-28 12:36 | disposition home or self-care (01) ==
LOC: RAD 12:36
PROVIDERS: PCP Family Medicine; Visit Provider Family Medicine
DX: M48.54XA Collapsed vertebra, not elsewhere classified, thoracic region, initial encounter for fracture (principal)
CPT/HCPCS: 72128

== ENCOUNTER → 2025-01-17 11:15 | Outpatient (BNVA) | payer OTHER, SELFPAY | PROVIDERS: PCP Family Medicine; Visit Provider Specialist | DX: I69.398 Other sequelae of cerebral infarction (principal); R25.2 Cramp and spasm; R03.0 Elevated blood-pressure reading, without diagnosis of hypertension; G89.0 Central pain syndrome | CPT/HCPCS: 99204 ==

== ENCOUNTER → 2025-05-09 11:04 | Outpatient (BNVA) | payer OTHER, SELFPAY | PROVIDERS: PCP Family Medicine; Visit Provider Specialist | DX: I69.398 Other sequelae of cerebral infarction (principal); R25.2 Cramp and spasm | CPT/HCPCS: 64642; J0585; J9999 ==